=== PATIENT | male | born 1970 | race Caucasian/White ===

== ENCOUNTER 2016-12-13 14:09 | Emergency (ER) | payer MEDICAID ==
[~2016-12-13] VITALS: Ht 180.3 cm; Wt 68.0 kg
[~2016-12-13 14:09] MED LIST: CELEXA10 M1 PO; FLEXERIL10 MG PO; KEFLEX 500MG.500 MG PO; NAPROSYN 500MG500 MG PO; NORCO 325 MG-51 TAB PO; PREDNISONE 20MG20 MG PO; VIMOVO 20 MG-501 TCP PO
[2016-12-13] MEDS ORDERED: NEURONTIN 300M300 MG PO (14:20)
[2016-12-13] MEDS ORDERED: OMEPRAZOLE20 MG PO (14:20)
--- NOTE | 2016-12-13 14:23 | Emergency Room Report ---
History of Present Illness Time Seen by MD De Anda Presenting Problem in Triage Pt arrived:Wheelchair Presenting Problem:PT HAS LACERATION RIGHT RANDOLPH FROM HITTING HIS LEG ON THE HITCH OF HIS TRUCK Onset of symptoms date/time:12/13/16 or onset unknown for: Treatment Prior to Arrival: NURSE SPECIAL Provided by: Sepsis Risk Assessment: Temp: 9797. B/P: 140/83 MAP: 102 Pulse: 85 Resp: 20 Recent fever? N Clinical Suspician of Infection? N Mental Status: 1 - Regular (Normal Baseline) Sepsis Risk:Possible Sepsis Risk Have you (or family members/close friends) recently traveled outside the [place]? N If Yes, where/when: Have you had exposure to infectious disease within the past month? N TB? Other? Specify: Pretibial laceration sustained just NURSE SPECIAL when ran against a trailer hitch; has very jagged 4 cm laceration mid shaft area, with bleeding controlled, no obvious tendon or bone exposure noted; some tissue has been removed traumatically NURSE SPECIAL, leaving a divet distally to wound. ALLERGIES Coded Allergies: codeine (ITCHING 08/01/16) isopropyl alcohol (PASSING OUT 08/01/16) tramadol (ITCHING 08/01/16) Uncoded Allergies: CONTRAST DYE (12/13/16) Home Medications Reported Medications Gabapentin (Neurontin 300MG) 300 MG PO TID Omeprazole (Omeprazole 20MG) 20 MG PO DAILY Cyclobenzaprine Hcl (Flexeril) 10 MG PO TID NAPROXEN (NAPROSYN 500MG TAB) (Unknown Dose) PO DAILY Citalopram Hydrobromide (Celexa) 10 MG PO DAILY History Medical History General CAD? No Angina: No [place]: No Hypertension? No Hyperlipidemia? No CHF? No DVT? No PE? No COPD? No Asthma? No Anemia? No GERD? Yes Gastric ulcers? No GI Bleed? No Hernia? No Thyroid Problems? No Hypothyroidism? No CVA? No Seizures? No Diabetes? No Renal Insuffiency? No End Stage Renal Disease? No UTI? No Stones? No BPH? No GB Disease: No Nephritic Syndrome? No Asplenia? No Hepatitis? No Sickle Cell Disease? No Arthritis? No Migraines? Yes Cataracts? No Glaucoma? No MRSA? No HIV? No TB? No Anxiety? No Depression? No Cancer? No More? No Immunization Hx DT/Tetanus 01/10/2009 Surgical Hx Previous Surgery?N Social History Smoking Hx Smoker: Current Every Day Smoker Tobacco: Yes Type Cigarettes Packs/day 1 1/2 - 2 Packs Alcohol Alcohol: No Review of Systems All Other Systems Reviewed and Negative Skin see HPI Psychiatric/Neurological denies no symptoms reported Physical Exam Vital Signs Vital Signs Date Time Temp Pulse Resp B/P Pulse O2 O2 Flow FiO2 Ox Delivery Rate 12/13 1429 20 12/13 1412 9797.0 85 20 140/83 100 General Appearance normal appearance, WD/WN, no apparent distress Respiratory Status No: respiratory distress. Cardiovascular no peripheral edema, normal peripheral pulses Extremities non-tender (n/v intact well perfused limb), normal range of motion Strength 5 Upper Ext (L), 5 Upper Ext (R), 5 Lower Ext (L), 5 Lower Ext (R) Neurologic alert, normal exam, no motor/sensory deficits, oriented x 3 Skin laceration(s), jagged laceration 4.0 cm no FB no tendon or bone exposure some tissue gone distally. Bleeding controlled; no FB noted. Medical Decision Making LABS/Meds/Orders Pt receiving controlled substance in ED? No Results/Orders Current Medication Orders Sig/Robb Start time Last Medication Dose Route Stop Time Status Admin Bacitracin 0 .STK-MED ONE 12/13 1454 DC TP Diphtheria/Pertussis/ 0.5 ML ONCE ONE 12/13 1430 DC 12/13 Tetanus Vacc IM 12/13 1431 1428 Ketorolac 60 MG ONCE ONE 12/13 1430 DC 12/13 Tromethamine IM 12/13 1431 1429 Lidocaine/Epinephrine 10 ML ONCE ONE 12/13 1430 DC 12/13 SC 12/13 1431 1429 Diphtheria/Pertussis/ 0 .STK-MED ONE 12/13 1424 DC Tetanus Vacc IM Ketorolac 0 .STK-MED ONE 12/13 1423 DC Tromethamine .ROUTE Lidocaine/Epinephrine 0 .STK-MED ONE 12/13 1423 DC .ROUTE Orders Procedure Date/time Status LOWER LEG-RT 12/13 141 Active Procedures Laceration/Wound Repair Laceration/Wound Repair Risks/benefits discussed with pt/guardian? Yes Tetanus status up to date (updated today) Wound Location lower leg Wound Length (cm) 4 Wound's Depth, Shape sucutaneous tissue Wound Explored clean Irrigated w/ Saline (ccs) 50 Wound Prep mild soap: states allergic to isopropyl alcohol Anesthesia Lidocaine w/Epi Volume Anesthetic (ccs) 6 Wound Debrided minimal Wound Repaired With sutures Suture Size/Type 4:0 Layer Closure No Total Number Sutures 7 Sterile Dressing Applied Yes Departure Departure Time of Disposition 1456 Disposition DC Home or Self Care(routine) Clinical Impression Primary Impression: Laceration of lower leg without complication Qualifiers: Encounter type: initial encounter Laterality: right Qualified Code: S81.811A - Laceration without foreign body, right lower leg, initial encounter Condition STABLE Referrals Zhang Colvin MD (PCP) Patient Instructions Laceration Repair Additional Instructions Sutures out Dr. Colvin' office in one week; you will have scarring as some tissue was gone prior to suture repair. Discharge Counseling Counseled pt/family regarding diagnosis, medications/RX, home care, follow up needs (likelihood of scar) ED Critical Care Critical Care No at [id number]
--- NOTE | 2016-12-13 14:23 | Emergency Room Report ---
History of Present Illness Time Seen by MD De Anda Presenting Problem in Triage Pt arrived:Wheelchair Presenting Problem:PT HAS LACERATION RIGHT RANDOLPH FROM HITTING HIS LEG ON THE HITCH OF HIS TRUCK Onset of symptoms date/time:12/13/16 or onset unknown for: Treatment Prior to Arrival: DIRT SHOVELER Provided by: Sepsis Risk Assessment: Temp: 9797. B/P: 140/83 MAP: 102 Pulse: 85 Resp: 20 Recent fever? N Clinical Suspician of Infection? N Mental Status: 1 - Regular (Normal Baseline) Sepsis Risk:Possible Sepsis Risk Have you (or family members/close friends) recently traveled outside the [place]? N If Yes, where/when: Have you had exposure to infectious disease within the past month? N TB? Other? Specify: Pretibial laceration sustained just DIRT SHOVELER when ran against a trailer hitch; has very jagged 4 cm laceration mid shaft area, with bleeding controlled, no obvious tendon or bone exposure noted; some tissue has been removed traumatically DIRT SHOVELER, leaving a divet distally to wound. ALLERGIES Coded Allergies: codeine (ITCHING 08/01/16) isopropyl alcohol (PASSING OUT 08/01/16) tramadol (ITCHING 08/01/16) Uncoded Allergies: CONTRAST DYE (12/13/16) Home Medications Reported Medications Gabapentin (Neurontin 300MG) 300 MG PO TID Omeprazole (Omeprazole 20MG) 20 MG PO DAILY Cyclobenzaprine Hcl (Flexeril) 10 MG PO TID NAPROXEN (NAPROSYN 500MG TAB) (Unknown Dose) PO DAILY Citalopram Hydrobromide (Celexa) 10 MG PO DAILY History Medical History General CAD? No Angina: No [place]: No Hypertension? No Hyperlipidemia? No CHF? No DVT? No PE? No COPD? No Asthma? No Anemia? No GERD? Yes Gastric ulcers? No GI Bleed? No Hernia? No Thyroid Problems? No Hypothyroidism? No CVA? No Seizures? No Diabetes? No Renal Insuffiency? No End Stage Renal Disease? No UTI? No Stones? No BPH? No GB Disease: No Nephritic Syndrome? No Asplenia? No Hepatitis? No Sickle Cell Disease? No Arthritis? No Migraines? Yes Cataracts? No Glaucoma? No MRSA? No HIV? No TB? No Anxiety? No Depression? No Cancer? No More? No Immunization Hx DT/Tetanus 01/10/2009 Surgical Hx Previous Surgery?N Social History Smoking Hx Smoker: Current Every Day Smoker Tobacco: Yes Type Cigarettes Packs/day 1 1/2 - 2 Packs Alcohol Alcohol: No Review of Systems All Other Systems Reviewed and Negative Skin see HPI Psychiatric/Neurological denies no symptoms reported Physical Exam Vital Signs Vital Signs Date Time Temp Pulse Resp B/P Pulse O2 O2 Flow FiO2 Ox Delivery Rate 12/13 1429 20 12/13 1412 9797.0 85 20 140/83 100 General Appearance normal appearance, WD/WN, no apparent distress Respiratory Status No: respiratory distress. Cardiovascular no peripheral edema, normal peripheral pulses Extremities non-tender (n/v intact well perfused limb), normal range of motion Strength 5 Upper Ext (L), 5 Upper Ext (R), 5 Lower Ext (L), 5 Lower Ext (R) Neurologic alert, normal exam, no motor/sensory deficits, oriented x 3 Skin laceration(s), jagged laceration 4.0 cm no FB no tendon or bone exposure some tissue gone distally. Bleeding controlled; no FB noted. Medical Decision Making LABS/Meds/Orders Pt receiving controlled substance in ED? No Results/Orders Current Medication Orders Sig/Robb Start time Last Medication Dose Route Stop Time Status Admin Bacitracin 0 .STK-MED ONE 12/13 1454 DC TP Diphtheria/Pertussis/ 0.5 ML ONCE ONE 12/13 1430 DC 12/13 Tetanus Vacc IM 12/13 1431 1428 Ketorolac 60 MG ONCE ONE 12/13 1430 DC 12/13 Tromethamine IM 12/13 1431 1429 Lidocaine/Epinephrine 10 ML ONCE ONE 12/13 1430 DC 12/13 SC 12/13 1431 1429 Diphtheria/Pertussis/ 0 .STK-MED ONE 12/13 1424 DC Tetanus Vacc IM Ketorolac 0 .STK-MED ONE 12/13 1423 DC Tromethamine .ROUTE Lidocaine/Epinephrine 0 .STK-MED ONE 12/13 1423 DC .ROUTE Orders Procedure Date/time Status LOWER LEG-RT 12/13 141 Active Procedures Laceration/Wound Repair Laceration/Wound Repair Risks/benefits discussed with pt/guardian? Yes Tetanus status up to date (updated today) Wound Location lower leg Wound Length (cm) 4 Wound's Depth, Shape sucutaneous tissue Wound Explored clean Irrigated w/ Saline (ccs) 50 Wound Prep mild soap: states allergic to isopropyl alcohol Anesthesia Lidocaine w/Epi Volume Anesthetic (ccs) 6 Wound Debrided minimal Wound Repaired With sutures Suture Size/Type 4:0 Layer Closure No Total Number Sutures 7 Sterile Dressing Applied Yes Departure Departure Time of Disposition 1456 Disposition DC Home or Self Care(routine) Clinical Impression Primary Impression: Laceration of lower leg without complication Qualifiers: Encounter type: initial encounter Laterality: right Qualified Code: S81.811A - Laceration without foreign body, right lower leg, initial encounter Condition STABLE Referrals Zhang Colvin MD (PCP) Patient Instructions Laceration Repair Additional Instructions Sutures out Dr. Colvin' office in one week; you will have scarring as some tissue was gone prior to suture repair. Discharge Counseling Counseled pt/family regarding diagnosis, medications/RX, home care, follow up needs (likelihood of scar) ED Critical Care Critical Care No at [id number]
[2016-12-13 15:00] VITALS: BP 140/83
--- OUTSIDE RECORDS SUMMARY | 2016-12-13 15:02 | External Medical Summary Rpt | CCD ---
Author Author , TROY SIMMONS Address Unknown Phone [email or web address] Care Team Providers Care Stone Driller Helper Name Role Phone Rossi BARRON MD PSC, Rossi Unavailable Unavailable Lissette BARRON MD [facility] Unavailable Unavailable MEDICAL GROUP, [facility] EDWARDS, EDWARDS Unavailable Unavailable [facility] ALL, EDWARDS ALL Unavailable Unavailable [facility] Unavailable Unavailable ORTHOPAEDIC, [facility] DANILO, DANILO Unavailable Unavailable MASTERSON VANI, MASTERSON Unavailable Unavailable VANI [facility] Unavailable Unavailable INC, [facility] CORNEJO, CORNEJO Unavailable Unavailable [facility] Un[facility] Unavailable [facility], [facility] KILPELA, KILPELA Unavailable Unavailable KRISHNA BRYAN, KRISHNA BRYAN Unavailable Unavailable CRAIG III CHR, Unavailable Unavailable CRAIG III CHR BEATRICE BARRON Unavailable Unavailable Purpose Continuity of Care Document - 08-05-2015 through 2016 Problems Code Diagnosis DOS Provider Status [id number] RADICULOPAT 10-05-2016 [facility] LUMBOSACRAL ORTHOPAEDIC REGION [id number] PAIN IN 10-05-2016 [facility] LEFT LEG [place] [facility] R202 PARESTHESIA 10-05-2016 [facility] SKIN [place] [facility] M5136 OTH 09-22-2016 [facility] INTERVERTEB [place] RAL DISC ORTHOPAEDIC DEGEN LUMBAR REGION [id number] OTHER 08-18-2016 [facility] SPONDYLOSIS [facility] LUMBAR [facility] REGION M5412 RADICULOPAT 08-01-2016 [facility] HY CERVICAL [facility] INC M5416 RADICULOPAT 08-01-2016 ANT LUMBAR [facility] REGION INC M5127 OTH 07-24-2016 [place] INTERVERT MEDICAL RAL DISC IMAGING ASS DISPLACEMEN T LS REGION M545 LOW BACK 07-24-2016 [place] PAIN MEDICAL IMAGING ASS M33766 OTHER 07-13-2016 [facility] CERVICAL [place] DISC ORTHOPAEDIC DEGENERATIO N AT C4-C5 LEVEL [id number] OTHER 07-13-2016 [facility] CERVICAL [place] DISC ORTHOPAEDIC DEGENERATIO N AT C5-C6 LEVEL M542 CERVICALGIA 07-13-2016 Rossi BARRON MD [facility] [id number] PAIN IN 07-07-2016 [facility] RIGHT UPPER [place] ARM [facility]THOPAEDIC Y21211 PAIN IN 07-07-2016 [facility] LEFT UPPER [place] [facility]TH[facility] [id number] SPONDYLOSIS 06-19-2016 [place] W/O MEDICAL MYELOPATH/R IMAGING ASS ADICULOPATH Y CERV RGN J40 BRONCHITIS 06-08-2016 A Lissette STEELE MD PSC SPECIFIED ACUTE OR CHRONIC R200 ANESTHESIA 05-29-2016 A Lissette BARRON OF SKIN PSC [id number] STRAIN 05-29-2016 A Lissette BARRON MUSCLE PSC FASCIA & TENDON LOW BACK INITIAL Z6820 BODY MASS 05-29-2016 A Lissette BARRON INDEX BMI PSC 20.0-20.9 ADULT H9201 OTALGIA 02-29-2016 A Lissette BARRON RIGHT EAR [facility] M58347 UNSPECIFIED 02-29-2016 A Lissette BARRON MD PSC TEMPOROMAND IBULAR JOINT D/O UNS SIDE M5022 OT CERV 11-11-2015 [facility] MEDICAL T GROUP MID-CERVICA L REGION M5489 OTHER 11-11-2015 [facility] M5030 OT 10-21-2015 [facility] CERVICAL [facility] DISC INC DEGENERATIO N UNS CERV REGION M5032 OT CERV 10-11-2015 [place] DISC MEDICAL DEGENERATIO IMAGING ASS N MID-CERVICA L REGION M5137 OT 10-11-2015 [place] INTERVERTEB MEDICAL RAL DISC IMAGING ASS DEGEN LUMBOSACRAL REGION M5442 LUMBAGO 10-11-2015 [facility] WITH [facility] SCIATICA INC LEFT SIDE Medications Na ND Rx Da Fi Fi Am Da Di Ph RX Ph St me C No te ll ll ou ys ag ar # ys at rm s nt no ma ic us Or Da si cy ia de te s n re d CI 65 09 10 30 30 00 HO Ac TA 16 -2 -1 .0 00 ME ti LO 20 0- 3- 00 06 TO ve VA 05 20 20 09 WN AM 35 17 17 10 0 23 PH HB AR R MA 20 CY MG OF TA CY BL NT ET HI AN A BE 69 09 10 30 10 00 HO Ac NZ 45 -0 -0 .0 00 ME ti ON 20 7- 6- 00 06 TO ve AT 14 20 20 09 WN AT 43 17 17 38 E 0 96 PH 20 AR 0 MA MG CY CA OF PS UL CY E NT HI AN A VA 00 08 09 20 10 00 HO Ac OM 60 -3 -2 0. 00 ME ti ET 31 1- 9- 00 06 TO ve MCDANIELS 58 20 20 0 09 WN ZI 65 17 17 34 NE 8 92 PH -D AR M MA SY CY RU P OF CY NT HI AN A VA 59 08 09 30 30 00 HO Ac ED 74 -3 -2 .0 00 ME ti NI 60 0- 2- 00 06 TO ve SO 17 20 20 09 WN NE 50 17 17 33 9 95 PH 20 AR MA MG CY TA OF BL ET CY NT HI AN A HY 68 08 09 [address] 46 -3 -2 .0 00 ME ti OX 20 0- 2- 00 06 TO ve YZ 35 20 20 09 WN IN 30 17 17 33 E 5 96 PH HC AR L MA 25 CY MG OF TA CY BL NT ET HI AN A GA 45 08 09 90 30 00 HO Ac BA 96 -3 -2 .0 00 ME ti PE 30 0- 2- 00 04 TO ve NT 55 20 20 02 WN IN 55 17 17 43 0 69 PH 10 AR 0 MA MG CY CA OF PS UL CY E NT HI AN A CI 65 08 09 30 30 00 HO Ac TA 16 -2 -1 .0 00 ME ti LO 20 1- 5- 00 06 TO ve VA 05 20 20 09 WN AM 35 17 17 10 0 23 PH HB AR R MA 20 CY MG OF TA CY BL NT ET HI AN A CY 69 08 09 90 30 00 HO Ac CL 09 -2 -1 .0 00 ME ti OB 70 1- 5- 00 06 TO ve EN 84 20 20 09 WN ZA 61 17 17 28 VA 5 05 PH IN AR E MA 10 CY MG OF TA CY BL NT ET HI AN A VA 59 07 08 20 10 00 HO Ac ED 74 -1 -1 .0 00 ME ti NI 60 9- 1- 00 06 TO ve SO 17 20 20 09 WN NE 50 17 17 10 9 20 PH 20 AR MA MG CY TA OF BL ET CY NT HI AN A CY 69 07 08 90 30 00 HO Ac CL 09 -1 -1 .0 00 ME ti OB 70 9- 1- 00 06 TO ve EN 84 20 20 09 WN ZA 61 17 17 10 VA 5 22 PH IN AR E MA 10 CY MG OF TA CY BL NT ET HI AN A CI 65 07 08 30 30 00 HO Ac TA 16 -1 -1 .0 00 ME ti LO 20 9- 1- 00 06 TO ve VA 05 20 20 09 WN AM 35 17 17 10 0 23 PH HB AR R MA 20 CY MG OF TA CY BL NT ET HI AN A FL 50 06 07 16 30 00 HO Ac UT 38 -2 -2 .0 00 ME ti IC 30 9- 8- 00 06 TO ve 70 20 20 08 WN ON 01 17 17 47 E 6 20 PH VA AR OP MA CY 50 OF MC G CY SP NT RA HI Y AN A CY 69 06 07 30 10 00 HO Ac CL 09 -2 -2 .0 00 ME ti OB 70 9- 8- 00 06 TO ve EN 84 20 20 08 WN ZA 61 17 17 89 VA 5 01 PH IN AR E MA 10 CY MG OF TA CY BL NT ET HI AN A NA 69 06 07 60 30 00 HO Ac VA 09 -1 -1 .0 00 ME ti OX 70 5- 4- 00 06 TO ve EN 85 20 20 08 WN 51 17 17 90 50 2 60 PH 0 AR MG MA CY TA BL OF ET CY NT HI AN A CY 69 06 07 30 10 00 HO Ac CL 09 -1 -0 .0 00 ME ti OB 70 4- 7- 00 06 TO ve EN 84 20 20 08 WN ZA 61 17 17 89 VA 5 01 PH IN AR E MA 10 CY MG OF TA CY BL NT ET HI AN A HY 00 05 06 [address] 60 -1 -0 .0 00 ME ti OC 33 2- 9- 00 02 TO ve OD 89 20 20 01 WN ON 03 17 17 36 -A 2 45 PH CE AR TA MA CO CY NO PH OF EN CY 5- NT 32 HI 5 AN A CY 69 05 06 30 10 00 HO Ac CL 09 -1 -0 .0 00 ME ti OB 70 1- 9- 00 06 TO ve EN 84 20 20 08 WN ZA 61 17 17 47 VA 5 19 PH IN AR E MA 10 CY MG OF TA CY BL NT ET HI AN A CY 69 04 05 30 10 00 HO Ac CL 09 -2 -2 .0 00 ME ti OB 70 8- 6- 00 06 TO ve EN 84 20 20 08 WN ZA 61 17 17 47 VA 5 19 PH IN AR E MA 10 CY MG OF TA CY BL NT ET HI AN A HY 00 04 05 [address] 60 -2 -2 .0 00 ME ti OC 33 8- 6- 00 02 TO ve OD 89 20 20 01 WN ON 03 17 17 35 -A 2 28 PH CE AR TA MA CO CY NO PH OF EN CY 5- NT 32 HI 5 AN A AM 00 04 05 20 10 00 HO Ac OX 09 -2 -1 .0 00 ME ti IC 32 0- 9- 00 06 TO ve IL 26 20 20 08 WN LI 40 17 17 54 N 1 82 PH 87 AR 5 MA MG CY TA OF BL ET CY NT HI AN A VA 59 04 05 20 10 00 HO Ac ED 74 -2 -1 .0 00 ME ti NI 60 0- 9- 00 06 TO ve SO 17 20 20 08 WN NE 50 17 17 54 9 80 PH 20 AR MA MG CY TA OF BL ET CY NT HI AN A VA 00 04 05 14 7 00 HO Ac OM 60 -2 -1 0. 00 ME ti ET 31 0- 9- 00 06 TO ve MCDANIELS 58 20 20 0 08 WN ZI 65 17 17 54 NE 8 81 PH -D AR M MA SY CY RU P OF CY NT HI AN A HY 00 04 05 [address] 60 -1 -0 .0 00 ME ti OC 33 0- 5- 00 02 TO ve OD 89 20 20 01 WN ON 03 17 17 33 -A 2 55 PH CE AR TA MA CO CY NO PH OF EN CY 5- NT 32 HI 5 AN A CY 00 04 05 30 10 00 HO Ac CL 60 -1 -0 .0 00 ME ti OB 33 0- 5- 00 06 TO ve EN 07 20 20 08 WN ZA 93 17 17 47 VA 2 19 PH IN AR E MA 10 CY MG OF TA CY BL NT ET HI AN A FL 50 04 05 16 30 00 HO Ac UT 38 -1 -0 .0 00 ME ti IC 30 0- 5- 00 06 TO ve 70 20 20 08 WN ON 01 17 17 47 E 6 20 PH VA AR OP MA CY 50 OF MC G CY SP NT RA HI Y AN A CY 00 03 04 30 10 00 HO Ac CL 60 -3 -2 .0 00 ME ti OB 33 0- 8- 00 06 TO ve EN 07 20 20 08 WN ZA 93 17 17 32 VA 2 80 PH IN AR E MA 10 CY MG OF TA CY BL NT ET HI AN A VA 59 03 04 20 10 00 HO Ac ED 74 -2 -2 .0 00 ME ti NI 60 7- 1- 00 06 TO ve SO 17 20 20 08 WN NE 50 17 17 40 9 06 PH 20 AR MA MG CY TA OF BL ET CY NT HI AN A NA 68 03 04 60 30 00 HO Ac VA 46 -1 -1 .0 00 ME ti OX 20 6- 4- 00 06 TO ve EN 19 20 20 08 WN 00 17 17 33 50 5 57 PH 0 AR MG MA CY TA BL OF ET CY NT HI AN A 75 03 04 60 30 00 HO Ac MO 98 -2 -1 .0 00 ME ti VO 70 2- 4- 00 06 TO ve 03 [address] 00 17 17 33 4 21 PH 50 AR 0- MA 20 CY MG OF TA CY BL NT ET HI AN A OM 68 03 04 30 30 00 HO Ac EP 46 -1 -1 .0 00 ME ti RA 20 6- 4- 00 06 TO ve ZO 39 20 20 08 WN LE 61 17 [address] AR MA 20 CY MG OF CA CY PS NT UL HI E AN A CY 00 03 04 30 10 00 HO Ac CL 60 -1 -0 .0 00 ME ti OB 33 5- 7- 00 06 TO ve EN 07 20 20 08 WN ZA 93 17 17 32 VA 2 80 PH IN AR E MA 10 CY MG OF TA CY BL NT ET HI AN A CY 00 02 03 30 10 00 HO Ac CL 60 -2 -2 .0 00 ME ti OB 33 7- 4- 00 06 TO ve EN 07 20 20 07 WN ZA 93 17 17 98 VA 2 23 PH IN AR E MA 10 CY MG OF TA CY BL NT ET HI AN A CY 00 02 03 30 10 00 HO Ac CL 60 -1 -1 .0 00 ME ti OB 33 3- 0- 00 06 TO ve EN 07 20 20 07 WN ZA 93 17 17 98 VA 2 23 PH IN AR E MA 10 CY MG OF TA CY BL NT ET HI AN A CY 00 01 02 30 10 00 HO Ac CL 60 -1 -1 .0 00 ME ti OB 33 9- 7- 00 06 TO ve EN 07 20 20 07 WN ZA 93 17 17 98 VA 2 23 PH IN AR E MA 10 CY MG OF TA CY BL NT ET HI AN A ME 68 01 02 30 30 00 HO Ac LO 38 -1 -1 .0 00 ME ti XI 20 8- 0- 00 06 TO ve CA 05 20 20 07 WN M 10 17 17 97 15 5 24 PH AR MG MA CY TA BL OF ET CY NT HI AN A HY 53 12 01 8. [address] 74 -2 -2 00 00 S ti OC 60 9- 7- 0 01 PH ve OD 10 20 20 28 AR ON 90 16 17 09 MA -A 1 39 CY CE TA #0 CO 23 NO 32 PH EN 5- 32 5 IB 53 12 01 30 10 00 CV Ac UP 74 -2 -2 .0 00 S ti RO 60 9- 7- 00 01 PH ve FE 46 20 20 28 AR N 60 16 17 09 MA 80 5 40 CY 0 MG #0 23 TA 32 BL ET FL 50 12 01 16 30 00 HO Ac UT 38 -2 -1 .0 00 ME ti IC 30 0- 3- 00 06 TO ve 70 20 20 07 WN ON 01 16 17 38 E 6 68 PH VA AR OP MA CY 50 OF MC G CY SP NT RA HI Y AN A Procedures Procedure DOS Code Location Performer Comment NERVE 85240 [facility] CONDU[facility] 7 [place] N STUDIES ORTHOPAED 9-10 IC STUDIES NEEDLE 13083 [facility] EMG EA 7 [place] EXTREMTY ORTHOPAED W/PARASPI IC NL AREA COMPLETE NJX 10913 AN[facility]IN DX/THER 7 [facility] AGT PVRT INC INC FACET JT LMBR/SAC 1 LEVEL NJX 82942 ANT CAIN DX/THER 7 [facility] AGT PVRT INC INC FACET JT LMBR/SAC 2ND LEVEL MRI 25238 [facility] SPINAL 7 MEDICAL CANAL IMAGING LUMBAR ASS W/O CONTRAST MATERIAL 3D 68623 [facility] W/INTERP IMAGING & ASS POSTPROCE SS SUPERVISI ON NEEDLE 49445 [facility] EMG EA 7 [place] EXTREMTY ORTHOPAED W/PARASPI IC NL AREA COMPLETE NERVE 11761 [facility] [place] CONDUCTIO 7 [place] N STUDIES ORTHOPAED 9-10 IC STUDIES RADEX 70027 [place] [facility] SPINE 7 MEDICAL CERVICAL IMAGING 4 OR 5 ASS VIEWS RADEX 49706 [place] [facility] SPINE 7 MEDICAL LUMBOSACR IMAGING AL 2/3 ASS VIEWS RADEX 96585 [facility] SPINE 7 [facility] LUMBOSACR INC INC AL MINIMUM 4 VIEWS APPL 18052 [facility] MODALITY 7 [facility] 1/> AREAS INC INC TRACTION MECHANICA L APPL 65427 ANT CAIN MODALITY 7 [facility] 1/> AREAS INC INC ELEC STIMJ UNATTENDE D APPLICATI 21559 [facility] CAIN ON 7 [facility] MODALITY INC INC 1/> AREAS HOT/COLD PACKS APPLICATI 89094 ANT CAIN ON 7 [facility] MODALITY INC INC 1/> AREAS HOT/COLD PACKS APPL 16786 [facility] MODALITY 7 [facility] 1/> AREAS INC INC ELEC STIMJ UNATTENDE D APPL 13832 [facility] CA[facility] MODALITY 7 [facility] 1/> AREAS INC INC TRACTION MECHANICA L THERAPEUT 73068 ANT CAIN IC PX 1/> 7 [facility] AREAS INC INC EACH 15 MIN EXERCISES APPL 01294 AN[facility] CAIN MODALITY 7 [facility] 1/> AREAS INC INC TRACTION MECHANICA L APPL 42118 ANT CAIN MODALITY 7 [facility] 1/> AREAS INC INC ELEC STIMJ UNATTENDE D APPLICATI 61873 ANT CAIN ON 7 [facility] MODALITY INC INC 1/> AREAS HOT/COLD PACKS APPLICATI 76257 ANT CAIN ON 7 [facility] MODALITY INC INC 1/> AREAS HOT/COLD PACKS APPL 87762 ANT CAIN MODALITY 7 [facility] 1/> AREAS INC INC ELEC STIMJ UNATTENDE D APPL 80591 ANT CAIN MODALITY 7 [facility] 1/> AREAS INC INC TRACTION MECHANICA L PHYSICAL 64159 AN[facility] THERAPY 7 [facility] EVALUATIO INC INC N MOD COMPLEX 30 MINS INJECTION J1885 Rossi BARRON MD KETOROLAC PSC TROMETHAM INE PER 15 MG INJECTION J3301 Rossi BARRON MD TRIAMCINO PSC LONE ACETONIDE NOS 10 MG THERAPEUT 71667 Rossi [place] IC 7 BEATRICE SALDIVAR PROPHYLAC PSC TIC/DX INJECTION SUBQ/IM APPL 01014 ANT CAIN MODALITY 6 [facility] 1/> AREAS INC INC TRACTION MECHANICA L APPLICATI 61017 ANT CAIN ON 6 [facility] MODALITY INC INC 1/> AREAS HOT/COLD PACKS APPL 93089 ANT CAIN MODALITY 6 [facility] 1/> AREAS INC INC ELEC STIMJ UNATTENDE D APPL 63031 ANT CAIN MODALITY 6 [facility] 1/> AREAS INC INC ULTRASOUN D EA 15 MIN APPL 61133 ANT CAIN MODALITY 6 [facility] 1/> AREAS INC INC ULTRASOUN D EA 15 MIN APPL 58920 ANT CAIN MODALITY 6 [facility] 1/> AREAS INC INC ELEC STIMJ UNATTENDE D APPL 10472 ANT CAIN MODALITY 6 [facility] 1/> AREAS INC INC TRACTION MECHANICA L THERAPEUT 12972 ANT CAIN IC PX 1/> 6 [facility] AREAS INC INC EACH 15 MIN EXERCISES APPL 89231 ANT CAIN MODALITY 6 [facility] 1/> AREAS INC INC TRACTION MECHANICA L APPL 83155 ANT CAIN MODALITY 6 [facility] 1/> AREAS INC INC ELEC STIMJ UNATTENDE D APPLICATI 19971 ANT CAIN ON 6 [facility] MODALITY INC INC 1/> AREAS HOT/COLD PACKS APPL 31746 ANT CAIN MODALITY 6 [facility] 1/> AREAS INC INC ULTRASOUN D EA 15 MIN APPL 89862 ANT CAIN MODALITY 6 [facility] 1/> AREAS INC INC ULTRASOUN D EA 15 MIN APPLICATI 52450 ANT CAIN ON 6 [facility] MODALITY INC INC 1/> AREAS HOT/COLD PACKS APPL 42306 ANT CAIN MODALITY 6 [facility] 1/> AREAS INC INC ELEC STIMJ UNATTENDE D APPL 33046 ANT CAIN MODALITY 6 [facility] 1/> AREAS INC INC TRACTION MECHANICA L APPL 77991 ANT CAIN MODALITY 6 [facility] 1/> AREAS INC INC TRACTION MECHANICA L THERAPEUT 75723 ANT CAIN IC PX 1/> 6 [facility] AREAS INC INC EACH 15 MIN EXERCISES APPL 08327 ANT CAIN MODALITY 6 [facility] 1/> AREAS INC INC ELEC STIMJ UNATTENDE D APPL 25626 ANT CAIN MODALITY 6 [facility] 1/> AREAS INC INC ULTRASOUN D EA 15 MIN APPL 89032 ANT CAIN MODALITY 6 [facility] 1/> AREAS INC INC ULTRASOUN D EA 15 MIN APPL 28379 ANT CAIN MODALITY 6 [facility] 1/> AREAS INC INC ELEC STIMJ UNATTENDE D THERAPEUT 73114 ANT CAIN IC PX 1/> 6 [facility] AREAS INC INC EACH 15 MIN EXERCISES APPL 74536 ANT CAIN MODALITY 6 [facility] 1/> AREAS INC INC TRACTION MECHANICA L 3D 71293 [place] [facility] ALL RENDERING 6 MEDICAL W/INTERP IMAGING & ASS POSTPROCE SS SUPERVISI ON MRI 16265 [facility] ALL SPINAL 6 MEDICAL CANAL IMAGING CERVICAL ASS W/O CONTRAST MATRL RADEX 18708 [facility] SPINE 6 [facility] CERVICAL INC INC 4 OR 5 VIEWS THERAPEUT 53852 Rossi MASTERSON IC Wally LUDWIG PROPHYLAC PSC TIC/DX INJECTION SUBQ/IM RADEX 63187 [facility]IN SPINE 6 [facility] LUMBOSACR INC INC AL MINIMUM 4 VIEWS RADEX 66355 [facility] SPINE 6 MEDICAL LUMBOSACR IMAGING AL 2/3 ASS VIEWS INJECTION J1885 Rossi LUDWIG KETOROLAC PSC TROMETHAM INE PER 15 MG RADEX 63240 [place] [facility] ALL SPINE 6 MEDICAL CERVICAL IMAGING 2 OR 3 ASS VIEWS Encounters Encounter Start End Date Code Location Performer Type Date OFFICE 25290 [facility] 7 7 [place] T VISIT [facility]THOPAED 15 IC MINUTES OFFICE 17756 [facility] 7 7 [place] [facility]OP[facility]ED 10 IC MINUTES OFFICE 09951 [facility] 7 [place] [facility] 15 IC MINUTES [facility]OSPITAL ANT - 7 7 [facility] T OFFICE 16020 [facility] 7 7 [place] T VIS[place]THOPAED 15 IC MINUTES OFFICE 73647 [facility]T OUTPATIEN 7 7 [facility] T VISIT INC 10 MINUTES HOSPITAL ANT - 7 7 [facility] OUTPATIEN INC T OFFICE 80600 A [facility] OUTPATIEN 7 7 BEATRICE SALDIVAR T VISIT PSC 15 MINUTES OFFICE 84566 [facility] 7 7 [place] VIS[place]THOPAED 10 IC MINUTES OFFICE 13045 A C [place] OUTPATIEN 7 7 BEATRICE SALDIVAR T VISIT PSC 15 MINUTES OFFICE 14598 [facility] 7 7 [place] T NEW 30 [facility]THOPAED MINUTES HOSPITAL ANT - 7 7 [facility] OUTPATIEN INC T OFFICE 02415 A C K[place]PE[place] OUTPATIEN 7 7 BEATRICE SALDIVAR T VISIT PSC 15 MINUTES OFFICE 48809 A [facility] OUTPATIEN 7 7 BEATRICE SALDIVAR T VISIT PSC 15 MINUTES OFFICE 32779 [facility] [place] OUTPATIEN 7 7 BEATRICE SALDIVAR T VISIT PSC 15 MINUTES HOSPITAL ANT - 7 7 [facility] OUTPATIEN INC T OFFICE 56554 A C [place] OUTPATIEN 7 7 BEATRICE SALDIVAR T VISIT PSC 15 MINUTES OFFICE 52562 Rossi BARRON OUTPATIPREETHI 7 7 BEATRICE SALDIVAR T VISIT [facility] 15 MINUTES [facility] ANT - 6 6 [facility] INC T OFFICE 95865 [facility] CRA[facility] OUTPATIEN 6 6 [facility] NEW 45 MEDICAL MINUTES [facility] ANT - 6 6 [facility] OUTPATIEN INC T OFFICE 22487 Rossi MASTERSON OUTPATIEN 6 6 BEATRICE LUDWIG T VISIT [facility] 15 MINUTES [facility] ANT - 6 6 [facility] OUTPATIEN INC T OFFICE 88453 Rossi ADAMS OUTPATIEN 6 6 BEATRICE SALDIVAR T VISIT [facility] 15 MINUTES
--- OUTSIDE RECORDS SUMMARY | 2016-12-13 15:02 | External Medical Summary Rpt | CCD ---
Author Author , TROY SIMMONS Address Unknown Phone [email or web address] Care Team Providers Care Battery Assembler Name Role Phone Rossi BARRON MD PSC, Rossi Unavailable Unavailable Lissette BARRON MD [facility] Unavailable Unavailable [facility], [facility] EDWARDS, EDWARDS Unavailable Unavailable [facility], [facility] ALL Unavailable Unavailable [facility] Unavailable Unavailable ORTHOPAEDIC, [facility] DANILO, DANILO Unavailable Unavailable MASTERSON VANI, MASTERSON Unavailable Unavailable V[facility] Unavailable Unavailable INC, [facility] CORNEJO, CORNEJO Unavailable Unavailable [facility] KILPELA, KILPELA Unavailable Unavailable KRISHNA BRYAN, KRISHNA BRYAN Unavailable Unavailable CRAIG III CHR, Unavailable Unavailable CRAIG III CHR BEATRICE BARRON Unavailable Unavailable Purpose Continuity of Care Document - 08-05-2015 through 2016 Problems Code Diagnosis DOS Provider Status [id number] RADICULOPAT 10-05-2016 [facility] LUMBOSACRAL ORTHOPAEDIC REGION [id number] PAIN IN 10-05-2016 [place] LEFT LEG [place] [facility] R202 PARESTHESIA 10-05-2016 [facility] [place] [facility] M5136 OTH 09-22-2016 [facility] INTERVERTEB [place] RAL DISC ORTHOPAEDIC DEGEN LUMBAR REGION [id number] OTHER 08-18-2016 [facility] LUMBAR INC REGION M5412 RADICULOPAT 08-01-2016 [facility] HY CERVICAL [facility] REG[facility] INC M5416 RADICULOPAT 08-01-2016 ANT LUMBAR [facility] INC M5127 OTH 07-24-2016 [place] INTERVERT [facility]ICAL RAL DISC IMAGING ASS DISPLACEMEN T LS REGION M545 LOW BACK 07-24-2016 [place] PAIN [facility] [id number] OTHER 07-13-2016 [facility] CERVICAL [place] DISC ORTHOPAEDIC DEGENERATIO N AT C4-C5 LEVEL U77656 OTHER 07-13-2016 [facility] CERVICAL [place] DISC ORTHOPAEDIC DEGENERATIO N AT C5-C6 LEVEL M542 CERVICALGIA 07-13-2016 Rossi BARRON MD [facility] [id number] PAIN IN 07-07-2016 [facility] RIGHT UPPER [place] ARM [facility]THOPAEDIC D51897 PAIN IN 07-07-2016 [facility] LEFT UPPER [place] [facility] N08259 SPONDYLOSIS 06-19-2016 [place] W/O MEDICAL MYELOPATH/R IMAGING ASS ADICULOPATH Y CERV RGN J40 BRONCHITIS 06-08-2016 A Lissette STEELE MD PSC SPECIFIED ACUTE OR CHRONIC R200 ANESTHESIA 05-29-2016 A Lissette BARRON OF SKIN PSC [id number] STRAIN 05-29-2016 A Lissette BARRON MUSCLE P[facility] FASCIA & TENDON LOW BACK INITIAL Z6820 BODY MASS 05-29-2016 A Lissette BARRON INDEX BMI PSC 20.0-20.9 ADULT H9201 OTALGIA 02-29-2016 A Lissette BARRON RIGHT EAR [facility] [id number] UNSPECIFIED 02-29-2016 A Lissette BARRON MD P[facility] TEMPOROMAND IBULAR JOINT D/O UNS SIDE M5022 OT CERV 11-11-2015 [facility] MID-CERVICA L REGION M5489 OTHER 11-11-2015 [facility] M5030 OT 10-21-2015 [facility] CERVICAL [facility] DISC INC DEGENERATIO N UNS CERV REGION M5032 OT CERV 10-11-2015 [place] DIS[facility] DEGENERATIO IMAGING ASS N MID-CERVICA L REGION M5137 OT 10-11-2015 [place] INTERVERTEB MEDICAL RAL DISC IMAGING ASS DEGEN [...] 20 0- 3- 00 06 TO ve IL 05 20 20 09 WN AM 35 [...] UL CY E NT HI AN A IL 00 08 09 20 10 00 HO Ac OM 60 -3 -2 0. 00 ME ti ET 31 1- 9- 00 06 TO ve MCDANIELS 58 20 20 0 09 WN ZI 65 17 17 34 NE 8 92 PH -D AR M MA SY CY RU P OF CY NT HI AN A IL 59 08 09 30 30 00 HO [...] 20 1- 5- 00 06 TO ve IL 05 20 20 09 WN AM 35 [...] 09 WN ZA 61 17 17 28 IL 5 05 PH IN AR E MA 10 CY MG OF TA CY BL NT ET HI AN A IL 59 07 08 20 10 00 HO [...] 09 WN ZA 61 17 17 10 IL 5 22 PH IN AR E MA 10 CY MG OF TA CY BL NT ET HI AN A CI 65 07 08 30 30 00 HO Ac TA 16 -1 -1 .0 00 ME ti LO 20 9- 1- 00 06 TO ve IL 05 20 20 09 WN AM 35 [...] 17 17 47 E 6 20 PH IL AR OP MA CY 50 OF MC G CY SP NT RA HI Y AN A CY 69 06 07 30 10 00 HO Ac CL 09 -2 -2 .0 00 ME ti OB 70 9- 8- 00 06 TO ve EN 84 20 20 08 WN ZA 61 17 17 89 IL 5 01 PH IN AR E MA 10 CY MG OF TA CY BL NT ET HI AN A NA 69 06 07 60 30 00 HO Ac IL 09 -1 -1 .0 00 ME ti [...] 08 WN ZA 61 17 17 89 IL 5 01 PH IN AR E MA 10 CY MG OF TA CY BL NT ET HI AN A HY 00 05 06 [address] 60 -1 -0 .0 00 ME ti OC 33 2- 9- 00 02 TO ve OD 89 20 20 01 WN ON 03 17 17 36 -A 2 45 PH CE AR TA MA [place] CY NO PH OF EN CY 5- NT 32 HI 5 AN A CY 69 05 06 30 10 00 HO Ac CL 09 -1 -0 .0 00 ME ti OB 70 1- 9- 00 06 TO ve EN 84 20 20 08 WN ZA 61 17 17 47 IL 5 19 PH IN AR E MA 10 CY MG OF TA CY BL NT ET HI AN A CY 69 04 05 30 10 00 HO Ac CL 09 -2 -2 .0 00 ME ti OB 70 8- 6- 00 06 TO ve EN 84 20 20 08 WN ZA 61 17 17 47 IL 5 19 PH IN AR E MA 10 CY MG OF TA CY BL NT ET HI AN A HY 00 04 05 [address] 60 -2 -2 .0 00 ME ti OC 33 8- 6- 00 02 TO ve OD 89 20 20 01 WN ON 03 17 17 35 -A 2 28 PH CE AR TA MA [place] CY NO PH OF EN CY 5- [...] BL ET CY NT HI AN A IL 59 04 05 20 10 00 HO Ac ED 74 -2 -1 .0 00 ME ti NI 60 0- 9- 00 06 TO ve SO 17 20 20 08 WN NE 50 17 17 54 9 80 PH 20 AR MA MG CY TA OF BL ET CY NT HI AN A IL 00 04 05 14 7 00 HO [...] 2 55 PH CE AR TA MA [place] CY NO PH OF EN CY 5- NT 32 HI 5 AN A CY 00 04 05 30 10 00 HO Ac CL 60 -1 -0 .0 00 ME ti OB 33 0- 5- 00 06 TO ve EN 07 20 20 08 WN ZA 93 17 17 47 IL 2 19 PH IN AR E MA 10 CY MG OF TA CY BL NT ET HI AN A FL 50 04 05 16 30 00 HO Ac UT 38 -1 -0 .0 00 ME ti IC 30 0- 5- 00 06 TO ve 70 20 20 08 WN ON 01 17 17 47 E 6 20 PH IL AR OP MA CY 50 OF MC G CY SP NT RA HI Y AN A CY 00 03 04 30 10 00 HO Ac CL 60 -3 -2 .0 00 ME ti OB 33 0- 8- 00 06 TO ve EN 07 20 20 08 WN ZA 93 17 17 32 IL 2 80 PH IN AR E MA 10 CY MG OF TA CY BL NT ET HI AN A IL 59 03 04 20 10 00 HO Ac ED 74 -2 -2 .0 00 ME ti NI 60 7- 1- 00 06 TO ve SO 17 20 20 08 WN NE 50 17 17 40 9 06 PH 20 AR MA MG CY TA OF BL ET CY NT HI AN A NA 68 03 04 60 30 00 HO Ac IL 46 -1 -1 .0 00 ME ti [...] 08 WN ZA 93 17 17 32 IL 2 80 PH IN AR E MA 10 CY MG OF TA CY BL NT ET HI AN A CY 00 02 03 30 10 00 HO Ac CL 60 -2 -2 .0 00 ME ti OB 33 7- 4- 00 06 TO ve EN 07 20 20 07 WN ZA 93 17 17 98 IL 2 23 PH IN AR E MA 10 CY MG OF TA CY BL NT ET HI AN A CY 00 02 03 30 10 00 HO Ac CL 60 -1 -1 .0 00 ME ti OB 33 3- 0- 00 06 TO ve EN 07 20 20 07 WN ZA 93 17 17 98 IL 2 23 PH IN AR E MA 10 CY MG OF TA CY BL NT ET HI AN A CY 00 01 02 30 10 00 HO Ac CL 60 -1 -1 .0 00 ME ti OB 33 9- 7- 00 06 TO ve EN 07 20 20 07 WN ZA 93 17 17 98 IL 2 23 PH IN AR E MA [...] -A 1 39 CY CE TA #0 [place] 23 NO 32 PH EN 5- 32 [...] 16 17 38 E 6 68 PH IL AR OP MA CY 50 OF MC G CY SP NT RA HI Y AN A Procedures Procedure DOS Code Location Performer Comment NERVE 19763 [facility] CONDUCTIO 7 [place] N STUDIES ORTHOPAED 9-10 IC STUDIES NEEDLE 96626 [facility] EMG EA 7 [place] EXTREMTY ORTHOPAED W/PARASPI IC NL AREA COMPLETE NJX 58191 ANT CAIN DX/THER 7 [facility] AGT PVRT INC INC FACET JT LMBR/SAC 1 LEVEL NJX 25990 ANT CAIN DX/THER 7 [facility] AGT PVRT INC INC FACET JT LMBR/SAC 2ND LEVEL MRI 14288 [facility] SPINAL 7 MEDICAL CANAL IMAGING LUMBAR ASS W/O CONTRAST MATERIAL 3D 66703 [facility] W/INTERP IMAGING & ASS POSTPROCE SS SUPERVISI ON NEEDLE 79130 [facility] [place] EMG EA 7 [place] EXTREMTY ORTHOPAED W/PARASPI IC NL AREA COMPLETE NERVE 51746 [facility] [place] CONDUCTIO 7 [place] N STUDIES ORTHOPAED 9-10 IC STUDIES RADEX 74693 [place] [facility] SPINE 7 MEDICAL CERVICAL IMAGING 4 OR 5 ASS VIEWS RADEX 91977 [place] [facility] SPINE 7 MEDICAL LUMBOSACR IMAGING AL 2/3 ASS VIEWS RADEX 83945 ANT ACIN SPINE 7 [facility] LUMBOSACR INC INC AL MINIMUM 4 VIEWS APPL 55564 [facility] MODALITY 7 [facility] 1/> AREAS INC INC TRACTION MECHANICA L APPL 84337 ANT [facility]IN MODALITY 7 [facility] 1/> AREAS INC INC ELEC STIMJ UNATTENDE D APPLICATI 97844 ANT CAIN ON 7 [facility] MODALITY INC INC 1/> AREAS HOT/COLD PACKS APPLICATI 40097 ANT CAIN ON 7 [facility] MODALITY INC INC 1/> AREAS HOT/COLD PACKS APPL 54455 AN[facility]IN MODALITY 7 [facility] 1/> AREAS INC INC ELEC STIMJ UNATTENDE D APPL 58923 AN[facility] CA[facility] MODALITY 7 [facility] 1/> AREAS INC INC TRACTION MECHANICA L THERAPEUT 05517 ANT CAIN IC PX 1/> 7 [facility] AREAS INC INC EACH 15 MIN EXERCISES APPL 47386 ANT CA[facility] MODALITY 7 [facility] 1/> AREAS INC INC TRACTION MECHANICA L APPL 58488 ANT CAIN MODALITY 7 [facility] 1/> AREAS INC INC ELEC STIMJ UNATTENDE D APPLICATI 07294 ANT CAIN ON 7 [facility] MODALITY INC INC 1/> AREAS HOT/COLD PACKS APPLICATI 37341 ANT CAIN ON 7 [facility] MODALITY INC INC 1/> AREAS HOT/COLD PACKS APPL 45577 ANT CAIN MODALITY 7 [facility] 1/> AREAS INC INC ELEC STIMJ UNATTENDE D APPL 20571 ANT CAIN MODALITY 7 [facility] 1/> AREAS INC INC TRACTION MECHANICA L PHYSICAL 53259 AN[facility] THERAPY 7 [facility] EVALUATIO INC INC N MOD COMPLEX 30 MINS INJECTION J1885 Rossi BARRON MD KETOROLAC PSC TROMETHAM INE PER 15 MG INJECTION J3301 Rossi BARRON MD TRIAMCINO PSC LONE ACETONIDE NOS 10 MG THERAPEUT 64580 Rossi [place] IC 7 BEATRICE SALDIVAR PROPHYLAC PSC TIC/DX INJECTION SUBQ/IM APPL 13430 ANT CAIN MODALITY 6 [facility] 1/> AREAS INC INC TRACTION MECHANICA L APPLICATI 38631 ANT CAIN ON 6 [facility] MODALITY INC INC 1/> AREAS HOT/COLD PACKS APPL 70266 ANT CAIN MODALITY 6 [facility] 1/> AREAS INC INC ELEC STIMJ UNATTENDE D APPL 50180 ANT CAIN MODALITY 6 [facility] 1/> AREAS INC INC ULTRASOUN D EA 15 MIN APPL 24726 ANT CAIN MODALITY 6 [facility] 1/> AREAS INC INC ULTRASOUN D EA 15 MIN APPL 37940 ANT CAIN MODALITY 6 [facility] 1/> AREAS INC INC ELEC STIMJ UNATTENDE D APPL 06595 ANT CAIN MODALITY 6 [facility] 1/> AREAS INC INC TRACTION MECHANICA L THERAPEUT 45368 ANT CAIN IC PX 1/> 6 [facility] AREAS INC INC EACH 15 MIN EXERCISES APPL 76276 ANT CAIN MODALITY 6 [facility] 1/> AREAS INC INC TRACTION MECHANICA L APPL 74468 ANT CAIN MODALITY 6 [facility] 1/> AREAS INC INC ELEC STIMJ UNATTENDE D APPLICATI 99681 ANT CAIN ON 6 [facility] MODALITY INC INC 1/> AREAS HOT/COLD PACKS APPL 55698 ANT CAIN MODALITY 6 [facility] 1/> AREAS INC INC ULTRASOUN D EA 15 MIN APPL 33001 ANT CAIN MODALITY 6 [facility] 1/> AREAS INC INC ULTRASOUN D EA 15 MIN APPLICATI 95487 ANT CAIN ON 6 [facility] MODALITY INC INC 1/> AREAS HOT/COLD PACKS APPL 19264 ANT CAIN MODALITY 6 [facility] 1/> AREAS INC INC ELEC STIMJ UNATTENDE D APPL 97229 ANT CAIN MODALITY 6 [facility] 1/> AREAS INC INC TRACTION MECHANICA L APPL 93390 ANT CAIN MODALITY 6 [facility] 1/> AREAS INC INC TRACTION MECHANICA L THERAPEUT 42401 ANT CAIN IC PX 1/> 6 [facility] AREAS INC INC EACH 15 MIN EXERCISES APPL 08862 ANT CAIN MODALITY 6 [facility] 1/> AREAS INC INC ELEC STIMJ UNATTENDE D APPL 72250 ANT CAIN MODALITY 6 [facility] 1/> AREAS INC INC ULTRASOUN D EA 15 MIN APPL 71963 ANT CAIN MODALITY 6 [facility] 1/> AREAS INC INC ULTRASOUN D EA 15 MIN APPL 90522 ANT CAIN MODALITY 6 [facility] 1/> AREAS INC INC ELEC STIMJ UNATTENDE D THERAPEUT 86374 ANT CAIN IC PX 1/> 6 [facility] AREAS INC INC EACH 15 MIN EXERCISES APPL 11866 ANT CAIN MODALITY 6 [facility] 1/> AREAS INC INC TRACTION MECHANICA L 3D 54132 [place] [facility] RENDERING 6 MEDICAL W/INTERP IMAGING & ASS POSTPROCE SS SUPERVISI ON MRI 11393 [facility] GRACE ALL SPINAL 6 MEDICAL CANAL IMAGING CERVICAL ASS W/O CONTRAST MATRL RADEX 11614 [facility] SPINE 6 [facility] CERVICAL INC INC 4 OR 5 VIEWS THERAPEUT 78883 Rossi MASTERSON IC Wally LUDWIG PROPHYLAC PSC TIC/DX INJECTION SUBQ/IM RADEX 63997 [facility]T CAIN SPINE 6 [facility] LUMBOSACR INC INC AL MINIMUM 4 VIEWS RADEX 93200 [facility] SPINE 6 MEDICAL LUMBOSACR IMAGING AL 2/3 ASS VIEWS INJECTION J1885 Rossi LUDWIG KETOROLAC PSC TROMETHAM INE PER 15 MG RADEX 44281 [place] [facility] ALL SPINE 6 MEDICAL CERVICAL IMAGING 2 OR 3 ASS VIEWS Encounters Encounter Start End Date Code Location Performer Type Date OFFICE 42217 [facility] 7 7 [place] T V[facility]THOPAED 15 IC MINUTES OFFICE 07111 [facility] 7 7 [place] [facility]THOPAED 10 IC MINUTES OFFICE 98841 [facility] [place] [facility] 15 IC MINUTES [facility] ANT - 7 7 [facility] OUTPAT[facility] INC T OFFICE 89214 [facility] 7 7 [place] [facility]THOPAED 15 IC MINUTES OFFICE 86554 [facility] OUTPATIEN 7 7 [facility] T VISIT INC 10 MINUTES HOSPITAL ANT - 7 7 [facility] OUTPATIEN INC T OFFICE 87620 [facility] OUTPATIEN 7 7 BEATRICE SALDIVAR T VISIT PSC 15 MINUTES OFFICE 46829 [facility] 7 7 [place] VISIT ORTHOPAED 10 IC MINUTES OFFICE 29833 A C [place] OUTPATIEN 7 7 BEATRICE SALDIVAR T VISIT PSC 15 MINUTES OFFICE 46425 [facility] 7 [facility] [place] [facility] 30 [facility]OPAED MINUTES [facility]OSPITAL ANT - 7 7 [facility] OUTPATIEN INC T OFFICE 71014 A C [place] OUTPATIEN 7 7 BEATRICE SALDIVAR T VISIT PSC 15 MINUTES OFFICE 94406 A [facility] [place] OUTPATIEN 7 7 BEATRICE SALDIVAR T VISIT PSC 15 MINUTES OFFICE 14018 [facility] [place] OUTPATIEN 7 7 BEATRICE SALDIVAR T VISIT PSC 15 MINUTES HOSPITAL ANT - 7 7 [facility] OUTPATIEN INC T OFFICE 48945 A [facility] [place] OUTPATIEN 7 7 BEATRICE SALDIVAR T VISIT PSC 15 MINUTES OFFICE 33768 Rossi BARRON OUTPATIPREETHI 7 7 BEATRICE SALDIVAR T VISIT [facility] 15 MINUTES [facility] ANT - 6 6 [facility] OUTPATIEN INC T OFFICE 13053 [facility] CRA[facility] OUTPATIEN 6 6 [facility] 45 MEDICAL MINUTES [facility] ANT - 6 6 [facility] OUTPATIEN INC T OFFICE 93073 Rossi MASTERSON OUTPATIEN 6 6 BEATRICE LUDWIG T VISIT [facility] 15 MINUTES [facility] ANT - 6 6 [facility] OUTPATIEN INC T OFFICE 51025 Rossi ADAMS OUTPATIEN 6 6 BEATRICE SALDIVAR T VISIT [facility] 15 MINUTES
--- OUTSIDE RECORDS SUMMARY | 2016-12-13 15:04 | External Medical Summary Rpt | CCD ---
Author Author , TROY Yady TROY Address Unknown Phone [email or web address] Care Team Providers Care Marble Setter Helper Name Role Phone Rossi ARCHER, Rossi Unavailable Unavailable Lissette BARRON MD [facility] Unavailable Unavailable [facility], [facility] EDWARDS, EDWARDS Unavailable Unavailable [facility]AR[facility] ALL, EDWARDS ALL Unavailable Unavailable [facility] Unavailable Unavailable [facility], [facility] DANILO, DANILO Unavailable Unavailable MASTERSON VANI, MASTERSON Unavailable Unavailable VANI [facility] Unavailable Unavailable INC, [facility] CORNEJO, CORNEJO Unavailable Unavailable [facility] Un[facility] Unavailable [facility] KILPELA, KILPELA Unavailable Unavailable KRISHNA BRYAN, KRISHNA BRYAN Unavailable Unavailable CRAIG III CHR, Unavailable Unavailable CRAIG III CHR BEATRICE BARRON Unavailable Unavailable Purpose Continuity of Care Document - 08-05-2015 through 2016 Problems Code Diagnosis DOS Provider Status [id number] RADICULOPAT 10-05-2016 [facility] LUMBOS[facility]AL [facility]THOPAEDIC REGION [id number] PAIN IN 10-05-2016 [place] LEFT LEG [place] [facility] R202 PARESTHESIA 10-05-2016 [facility] SKIN [place] [facility] M5136 OTH 09-22-2016 [facility] INTERVERTEB [place] RAL DISC ORTHOPAEDIC DEGEN LUMBAR REGION [id number] OTHER 08-18-2016 [facility]YLOSIS [facility] LUMBAR INC REGION M5412 RADICULOPAT 08-01-2016 [facility] HY CERVICAL [facility] REGION INC M5416 RADICULOPAT 08-01-2016 [facility] HY LUMBAR [facility] REG[facility] INC M5127 OTH 07-24-2016 [place] INTERVERT MEDICAL RAL DISC IMAGING ASS DISPLACEMEN T LS REGION M545 LOW BACK 07-24-2016 [place] PAIN [facility]ICAL [facility] ASS [id number] OTHER 07-13-2016 [facility] CERVICAL [place] DISC [facility]THOPAEDIC DEGENERATIO N AT C4-C5 LEVEL D97649 OTHER 07-13-2016 [facility] CERVICAL [place] DISC [facility]THOPAEDIC DEGENERATIO N AT C5-C6 LEVEL M542 CERVICALGIA 07-13-2016 Rsosi BARRON MD [facility] F58222 PAIN IN 07-07-2016 [facility] RIGHT UPPER [place] ARM [facility]THOP[facility] T39625 PAIN IN 07-07-2016 [facility] LEFT UPPER [place] [facility] T27659 SPONDYLOSIS 06-19-2016 [place] W/O MEDICAL MYELOPATH/R IMAGING ASS ADICULOPATH Y CERV RGN J40 BRONCHITIS 06-08-2016 A Lissette STEELE MD [facility]SC SPECIFIED ACUTE OR CHRONIC R200 ANESTHESIA 05-29-2016 A Lissette BARRON OF SKIN PSC R50363Y STRAIN 05-29-2016 A Lissette BARRON MUSCLE PSC FASCIA & TENDON LOW BACK INITIAL Z6820 BODY MASS 05-29-2016 A Lissette BARRON INDEX BMI PSC 20.0-20.9 ADULT H9201 OTALGIA 02-29-2016 A Lissette BARRON RIGHT EAR PSC L34465 UNSPECIFIED 02-29-2016 A Lissette BARRON MD [facility]SC TEMPOROMAND IBULAR JOINT D/O UNS SIDE M5022 OT CERV 11-11-2015 [facility] MID-CERVICA L REGION M5489 OTHER 11-11-2015 [facility] M5030 OT 10-21-2015 ANT CERVICAL [facility] DISC INC DEGENERATIO N UNS CERV REGION M5032 OT CERV 10-11-2015 [place] DISC [facility]ICAL DEGENERATIO IMAGING ASS N MID-CERVICA L REGION M5137 OT 10-11-2015 [place] INTERVERTEB MEDICAL RAL DISC IMAGING ASS DEGEN [...] 20 0- 3- 00 06 TO ve PA 05 20 20 09 WN AM 35 [...] UL CY E NT HI AN A PA 00 08 09 20 10 00 HO Ac OM 60 -3 -2 0. 00 ME ti ET 31 1- 9- 00 06 TO ve MCDANIELS 58 20 20 0 09 WN ZI 65 17 17 34 NE 8 92 PH -D AR M MA SY CY RU P OF CY NT HI AN A PA 59 08 09 30 30 00 HO [...] UL CY E NT HI AN A CY 69 08 09 90 30 00 HO Ac CL 09 -2 -1 .0 00 ME ti OB 70 1- 5- 00 06 TO ve EN 84 20 20 09 WN ZA 61 17 17 28 PA 5 05 PH IN AR E MA 10 CY MG OF TA CY BL NT ET HI AN A CI 65 08 09 30 30 00 HO Ac TA 16 -2 -1 .0 00 ME ti LO 20 1- 5- 00 06 TO ve PA 05 20 20 09 WN AM 35 17 17 10 0 23 PH HB AR R MA 20 CY MG OF TA CY BL NT ET HI AN A PA 59 07 08 20 10 00 HO [...] 09 WN ZA 61 17 17 10 PA 5 22 PH IN AR E MA 10 CY MG OF TA CY BL NT ET HI AN A CI 65 07 08 30 30 00 HO Ac TA 16 -1 -1 .0 00 ME ti LO 20 9- 1- 00 06 TO ve PA 05 20 20 09 WN AM 35 [...] 17 17 47 E 6 20 PH PA AR OP MA CY 50 OF MC G CY SP NT RA HI Y AN A CY 69 06 07 30 10 00 HO Ac CL 09 -2 -2 .0 00 ME ti OB 70 9- 8- 00 06 TO ve EN 84 20 20 08 WN ZA 61 17 17 89 PA 5 01 PH IN AR E MA 10 CY MG OF TA CY BL NT ET HI AN A NA 69 06 07 60 30 00 HO Ac PA 09 -1 -1 .0 00 ME ti [...] 08 WN ZA 61 17 17 89 PA 5 01 PH IN AR E MA 10 CY MG OF TA CY BL NT ET HI AN A HY 00 05 06 [address] 60 -1 -0 .0 00 ME ti OC 33 2- 9- 00 02 TO ve OD 89 20 20 01 WN ON 03 17 17 36 -A 2 45 PH CE AR TA MA MT CY NO PH OF EN CY 5- NT 32 HI 5 AN A CY 69 05 06 30 10 00 HO Ac CL 09 -1 -0 .0 00 ME ti OB 70 1- 9- 00 06 TO ve EN 84 20 20 08 WN ZA 61 17 17 47 PA 5 19 PH IN AR E MA 10 CY MG OF TA CY BL NT ET HI AN A CY 69 04 05 30 10 00 HO Ac CL 09 -2 -2 .0 00 ME ti OB 70 8- 6- 00 06 TO ve EN 84 20 20 08 WN ZA 61 17 17 47 PA 5 19 PH IN AR E MA 10 CY MG OF TA CY BL NT ET HI AN A HY 00 04 05 [address] 60 -2 -2 .0 00 ME ti OC 33 8- 6- 00 02 TO ve OD 89 20 20 01 WN ON 03 17 17 35 -A 2 28 PH CE AR TA MA MT CY NO PH OF EN CY 5- NT 32 HI 5 AN A PA 59 04 05 20 10 00 HO Ac ED 74 -2 -1 .0 00 ME ti NI 60 0- 9- 00 06 TO ve SO 17 20 20 08 WN NE 50 17 17 54 9 80 PH 20 AR MA MG CY TA OF BL ET CY NT HI AN A PA 00 04 05 14 7 00 HO Ac OM 60 -2 -1 0. 00 ME ti ET 31 0- 9- 00 06 TO ve MCDANIELS 58 20 20 0 08 WN ZI 65 17 17 54 NE 8 81 PH -D AR M MA SY CY RU P OF CY NT HI AN A AM 00 04 05 20 10 00 HO Ac OX 09 -2 -1 .0 00 ME ti IC 32 0- 9- 00 06 TO ve IL 26 20 20 08 WN LI 40 17 17 54 N 1 82 PH 87 AR 5 MA MG CY TA OF BL ET CY NT HI AN A CY 00 04 05 30 10 00 HO Ac CL 60 -1 -0 .0 00 ME ti OB 33 0- 5- 00 06 TO ve EN 07 20 20 08 WN ZA 93 17 17 47 PA 2 19 PH IN AR E MA 10 CY MG OF TA CY BL NT ET HI AN A FL 50 04 05 16 30 00 HO Ac UT 38 -1 -0 .0 00 ME ti IC 30 0- 5- 00 06 TO ve 70 20 20 08 WN ON 01 17 17 47 E 6 20 PH PA AR OP MA CY 50 OF MC G CY SP NT RA HI Y AN A HY 00 04 05 [address] 60 -1 -0 .0 00 ME ti OC 33 0- 5- 00 02 TO ve OD 89 20 20 01 WN ON 03 17 17 33 -A 2 55 PH CE AR TA MA MT CY NO PH OF EN CY 5- NT 32 HI 5 AN A CY 00 03 04 30 10 00 HO Ac CL 60 -3 -2 .0 00 ME ti OB 33 0- 8- 00 06 TO ve EN 07 20 20 08 WN ZA 93 17 17 32 PA 2 80 PH IN AR E MA 10 CY MG OF TA CY BL NT ET HI AN A PA 59 03 04 20 10 00 HO Ac ED 74 -2 -2 .0 00 ME ti NI 60 7- 1- 00 06 TO ve SO 17 20 20 08 WN NE 50 17 17 40 9 06 PH 20 AR MA MG CY TA OF BL ET CY NT HI AN A OM 68 03 04 30 30 00 HO Ac EP 46 -1 -1 .0 00 ME ti RA 20 6- 4- 00 06 TO ve ZO 39 20 20 08 WN LE 61 17 [address] AR MA 20 CY MG OF CA CY PS NT UL HI E AN A NA 68 03 04 60 30 00 HO Ac PA 46 -1 -1 .0 00 ME ti [...] NT ET HI AN A CY 00 03 04 30 10 00 HO Ac CL 60 -1 -0 .0 00 ME ti OB 33 5- 7- 00 06 TO ve EN 07 20 20 08 WN ZA 93 17 17 32 PA 2 80 PH IN AR E MA 10 CY MG OF TA CY BL NT ET HI AN A CY 00 02 03 30 10 00 HO Ac CL 60 -2 -2 .0 00 ME ti OB 33 7- 4- 00 06 TO ve EN 07 20 20 07 WN ZA 93 17 17 98 PA 2 23 PH IN AR E MA 10 CY MG OF TA CY BL NT ET HI AN A CY 00 02 03 30 10 00 HO Ac CL 60 -1 -1 .0 00 ME ti OB 33 3- 0- 00 06 TO ve EN 07 20 20 07 WN ZA 93 17 17 98 PA 2 23 PH IN AR E MA 10 CY MG OF TA CY BL NT ET HI AN A CY 00 01 02 30 10 00 HO Ac CL 60 -1 -1 .0 00 ME ti OB 33 9- 7- 00 06 TO ve EN 07 20 20 07 WN ZA 93 17 17 98 PA 2 23 PH IN AR E MA [...] -A 1 39 CY CE TA #0 MT 23 NO 32 PH EN 5- 32 [...] 16 17 38 E 6 68 PH PA AR OP MA CY 50 OF MC G CY SP NT RA HI Y AN A Procedures Procedure DOS Code Location Performer Comment NEEDLE 83910 [facility] EM[facility] EA 7 [place] EXTREMTY ORTHOPAED W/PARASPI IC NL AREA COMPLETE NERVE 63737 [facility] CONDUCTIO 7 [place] N STUDIES ORTHOPAED 9-10 [place] [address]284 [facility] CAIN DX/THER 7 [facility] AGT PVRT INC INC FACET JT LMBR/SAC 1 LEVEL NJX 85513 ANT CAIN DX/THER 7 [facility] AGT PVRT INC INC FACET JT LMBR/SAC 2ND LEVEL MRI 46710 [place] DANILO SPINAL 7 MEDICAL CANAL IMAGING LUMBAR ASS W/O CONTRAST MATERIAL 3D 07222 [facility] W/INTERP IMAGING & ASS POSTPROCE SS SUPERVISI ON NERVE 95250 [facility] CONDUCTIO 7 [place] N STUDIES ORTHOPAED 9-10 IC STUDIES NEEDLE 58471 [facility] [place] EMG EA 7 [place] EXTREMTY ORTHOPAED W/PARASPI IC NL AREA COMPLETE RADEX 04322 ANT CAIN SPINE 7 [facility] CERVICAL INC INC 4 OR 5 VIEWS RADEX 57007 [place] EDWARDS SPINE 7 MEDICAL LUMBOSACR IMAGING AL 2/3 ASS VIEWS RADEX 69927 ANT CAIN SPINE 7 [facility] LUMBOSACR INC INC AL MINIMUM 4 VIEWS APPLICATI 41139 ANT CAIN ON 7 [facility] MODALITY INC INC 1/> AREAS HOT/COLD PACKS APPL 15890 ANT [facility] MODALITY 7 [facility] 1/> AREAS INC INC TRACTION MECHANICA L APPL 92877 ANT CAIN MODALITY 7 [facility] 1/> AREAS INC INC ELEC STIMJ UNATTENDE D APPL 13586 ANT CAIN MODALITY 7 [facility] 1/> AREAS INC INC ELEC STIMJ UNATTENDE D APPL 80461 ANT CAIN MODALITY 7 [facility] 1/> AREAS INC INC TRACTION MECHANICA L THERAPEUT 08960 ANT CAIN IC PX 1/> 7 [facility] AREAS INC INC EACH 15 MIN EXERCISES APPLICATI 50614 ANT CAIN ON 7 [facility] MODALITY INC INC 1/> AREAS HOT/COLD PACKS APPLICATI 10992 ANT CAIN ON 7 [facility] MODALITY INC INC 1/> AREAS HOT/COLD PACKS APPL 52931 ANT CAIN MODALITY 7 [facility] 1/> AREAS INC INC TRACTION MECHANICA L APPL 39116 ANT CAIN MODALITY 7 [facility] 1/> AREAS INC INC ELEC STIMJ UNATTENDE D APPL 48727 ANT CAIN MODALITY 7 [facility] 1/> AREAS INC INC ELEC STIMJ UNATTENDE D APPL 28802 ANT CAIN MODALITY 7 [facility] 1/> AREAS INC INC TRACTION MECHANICA L APPLICATI 37443 ANT CAIN ON 7 [facility] MODALITY INC INC 1/> AREAS HOT/COLD PACKS PHYSICAL 68042 ANT CAIN THERAPY 7 [facility] EVALUATIO INC INC N MOD COMPLEX 30 MINS THERAPEUT 38104 Rossi VALADEZ 7 BEATRICE SALDIVAR PROPHYLAC PSC TIC/DX INJECTION SUBQ/IM INJECTION J3301 A C KILJUAN BARRON MD TRIAMCINO PSC LONE ACETONIDE NOS 10 MG INJECTION J1885 Rossi BARRON MD KETOROLAC PSC TROMETHAM INE PER 15 MG APPLICATI 96504 ANT CAIN ON 6 [facility] MODALITY INC INC 1/> AREAS HOT/COLD PACKS APPL 00894 ANT CAIN MODALITY 6 [facility] 1/> AREAS INC INC ULTRASOUN D EA 15 MIN APPL 77800 ANT CAIN MODALITY 6 [facility] 1/> AREAS INC INC ELEC STIMJ UNATTENDE D APPL 67053 ANT CAIN MODALITY 6 [facility] 1/> AREAS INC INC TRACTION MECHANICA L APPL 96006 ANT CAIN MODALITY 6 [facility] 1/> AREAS INC INC TRACTION MECHANICA L APPL 01426 ANT CAIN MODALITY 6 [facility] 1/> AREAS INC INC ELEC STIMJ UNATTENDE D THERAPEUT 57139 ANT CAIN IC PX 1/> 6 [facility] AREAS INC INC EACH 15 MIN EXERCISES APPL 35361 ANT CAIN MODALITY 6 [facility] 1/> AREAS INC INC ULTRASOUN D EA 15 MIN APPL 39951 ANT CAIN MODALITY 6 [facility] 1/> AREAS INC INC ULTRASOUN D EA 15 MIN APPLICATI 42645 ANT CAIN ON 6 [facility] MODALITY INC INC 1/> AREAS HOT/COLD PACKS APPL 47627 ANT CAIN MODALITY 6 [facility] 1/> AREAS INC INC ELEC STIMJ UNATTENDE D APPL 82158 ANT CAIN MODALITY 6 [facility] 1/> AREAS INC INC TRACTION MECHANICA L APPL 13133 ANT CAIN MODALITY 6 [facility] 1/> AREAS INC INC TRACTION MECHANICA L APPL 21526 ANT CAIN MODALITY 6 [facility] 1/> AREAS INC INC ELEC STIMJ UNATTENDE D APPLICATI 28239 ANT CAIN ON 6 [facility] MODALITY INC INC 1/> AREAS HOT/COLD PACKS APPL 46902 ANT CAIN MODALITY 6 [facility] 1/> AREAS INC INC ULTRASOUN D EA 15 MIN APPL 80252 ANT CAIN MODALITY 6 [facility] 1/> AREAS INC INC ULTRASOUN D EA 15 MIN THERAPEUT 09669 ANT CAIN IC PX 1/> 6 [facility] AREAS INC INC EACH 15 MIN EXERCISES APPL 16526 ANT CAIN MODALITY 6 [facility] 1/> AREAS INC INC TRACTION MECHANICA L APPL 45479 ANT CAIN MODALITY 6 [facility] 1/> AREAS INC INC ELEC STIMJ UNATTENDE D APPL 89277 ANT CAIN MODALITY 6 [facility] 1/> AREAS INC INC ELEC STIMJ UNATTENDE D APPL 81688 ANT CAIN MODALITY 6 [facility] 1/> AREAS INC INC TRACTION MECHANICA L THERAPEUT 58684 ANT CAIN IC PX 1/> 6 [facility] AREAS INC INC EACH 15 MIN EXERCISES APPL 61392 ANT CAIN MODALITY 6 [facility] 1/> AREAS INC INC ULTRASOUN D EA 15 MIN 3D 24359 PAULINE EDWARDS ALL RENDERING 6 MEDICAL W/INTERP IMAGING & ASS POSTPROCE SS SUPERVISI ON MRI 78607 ANT CAIN SPINAL 6 [facility] CANAL INC INC CERVICAL W/O CONTRAST MATRL RADEX 48408 ANT CAIN SPINE 6 [facility] CERVICAL INC INC 4 OR 5 VIEWS INJECTION J1885 Rossi LUDWIG KETOROLAC PSC TROMETHAM INE PER 15 MG RADEX 78310 PAULINE EDWARDS ALL SPINE 6 MEDICAL CERVICAL IMAGING 2 OR 3 ASS VIEWS THERAPEUT 07975 Rossi LUDWIG PROPHYLAC PSC TIC/DX INJECTION SUBQ/IM RADEX 70033 PAULINE EDWARDS ALL SPINE 6 MEDICAL LUMBOSACR IMAGING AL 2/3 ASS VIEWS RADEX 59074 ANT CAIN SPINE 6 [facility] LUMBOSACR INC INC AL MINIMUM 4 VIEWS Encounters Encounter Start End Date Code Location Performer Type Date OFFICE 77692 [facility] [place] [facility] 15 IC MINUTES OFFICE 54601 [facility] [place] [facility] 10 IC MINUTES OFFICE 31871 [facility] [place] [facility] 15 IC MINUTES [facility] ANT - 7 7 [facility] OUTPATIEN INC T OFFICE 13578 [facility] 7 7 [place] T VIS[facility]THOPAED 15 IC MINUTES OFFICE 02470 ANT OUTPATIEN 7 7 [facility] T VISIT INC 10 MINUTES HOSPITAL ANT - 7 7 [facility] OUTPATIEN INC T OFFICE 27760 [facility] 7 7 [place] T VISIT [facility]THOPAED 15 IC MINUTES OFFICE 05806 [facility] 7 7 [place] T VISIT ORTHOPAED 10 IC MINUTES OFFICE 54872 A C KILPELA OUTPATIEN 7 7 BEATRICE SALDIVAR T VISIT PSC 15 MINUTES OFFICE 40992 [facility] 7 7 [place] T NEW 30 [facility]THOPAED MINUTES HOSPITAL ANT - 7 7 [facility] OUTPATIEN INC T OFFICE 35198 A C KILPELA OUTPATIEN 7 7 BEATRICE SALDIVAR T VISIT PSC 15 MINUTES OFFICE 59643 A C KILPELA OUTPATIEN 7 7 BEATRICE SALDIVAR T VISIT PSC 15 MINUTES OFFICE 06002 A C KILPELA OUTPATIEN 7 7 BEATRICE SALDIVAR T VISIT PSC 15 MINUTES HOSPITAL ANT - 7 7 [facility] OUTPATIEN INC T OFFICE 54968 A C KILPELA OUTPATIEN 7 7 BEATRICE SALDIVAR T VISIT [facility] 15 MINUTES OFFICE 10330 Rossi BERNARDO 7 7 BEATRICE SALDIVAR T VISIT [facility] 15 MINUTES [facility] ANT - 6 6 [facility] OUTPATIEN [facility]31 [facility] 6 [facility] NEW 45 MEDICAL MINUTES [facility] ANT - 6 6 [facility] OUTPATIEN [facility] T OFFICE 48331 A Lissette MASTEROSN OUTPATIEN 6 6 BEATRICE LUDWIG T VISIT [facility] 15 MINUTES [facility] ANT - 6 6 [facility] OUTPATIEN [facility] T OFFICE 51739 Rossi ADAMS OUTPATIPREETHI 6 6 BEATRICE SALDIVAR T VISIT [facility] 15 MINUTES
--- OUTSIDE RECORDS SUMMARY | 2016-12-13 15:04 | External Medical Summary Rpt | CCD ---
Author Author , TROY Yady TROY Address Unknown Phone [email or web address] Care Team Providers Care Animal Care Provider Name Role Phone Rossi ARCHER, Rossi Unavailable Unavailable Lissette BARRON MD [facility] Unavailable Unavailable [facility], [facility] EDWARDS, EDWARDS Unavailable Unavailable [facility], EDWARDS ALL Unavailable Unavailable [facility] Unavailable Unavailable [facility], [facility] DANILO, DANILO Unavailable Unavailable MASTERSON VANI, MASTERSON Unavailable Unavailable VANI [facility] Unavailable Unavailable INC, [facility] CORNEJO, CORNEJO Unavailable Unavailable [facility] Un[facility] Un[facility] KILPELA, KILPELA Unavailable Unavailable KRISHNA BRYAN, KRISHNA BRYAN Unavailable Unavailable CARIG III CHR, Unavailable Unavailable CRAIG III CHR BEATRICE BARRON Unavailable Unavailable Purpose Continuity of Care Document - 08-05-2015 through 2016 Problems Code Diagnosis DOS Provider Status [id number] RADICULOPAT 10-05-2016 [facility] LUMBOSACRAL [facility]THOPAEDIC REGION [id number] PAIN IN 10-05-2016 [place] LEFT LEG [facility] [facility] R202 PARESTHESIA 10-05-2016 [facility] SKIN [place] [facility] M5136 OTH 09-22-2016 [facility] INTERVERTEB [place] RAL DISC ORTHOPAEDIC DEGEN LUMBAR REGION [id number] OTHER 08-18-2016 NAT SPONDYLOSIS [facility] LUMBAR INC REGION M5412 RADICULOPAT 08-01-2016 AN[facility] HY CERVICAL [facility] INC M5416 RADICULOPAT 08-01-2016 [facility] HY LUMBAR [facility] REG[facility] INC M5127 OTH 07-24-2016 [place] INTERVERT [facility] RAL DISC IMAGING ASS DISPLACEMEN T LS REGION M545 LOW BACK 07-24-2016 [place] PAIN [facility] [id number] OTHER 07-13-2016 [facility] CERVICAL [place] DISC [facility]THOPAEDIC DEGENERATIO N AT C4-C5 LEVEL [id number] OTHER 07-13-2016 [facility] CERVICAL [place] DISC [facility]THOPAEDIC DEGENERATIO N AT C5-C6 LEVEL M542 CERVICALGIA 07-13-2016 Rossi BARRON MD [facility] [id number] PAIN IN 07-07-2016 [facility] RIGHT UPPER [place] ARM [facility]TH[facility]EDIC Z29373 PAIN IN 07-07-2016 [facility] LEFT UPPER [place] ARM [facility] N84686 SPONDYLOSIS 06-19-2016 [place] W/O MEDICAL MYELOPATH/R IMAGING ASS ADICULOPATH Y CERV RGN J40 BRONCHITIS 06-08-2016 A Lissette STEELE MD PSC SPECIFIED ACUTE OR CHRONIC R200 ANESTHESIA 05-29-2016 A Lissette BARRON OF SKIN PSC [id number] STRAIN 05-29-2016 A Lissette BARRON MUSCLE PSC FASCIA & TENDON LOW BACK INITIAL Z6820 BODY MASS 05-29-2016 A Lissette BARRON INDEX BMI PSC 20.0-20.9 ADULT H9201 OTALGIA 02-29-2016 A Lissette BARRON RIGHT EAR PSC O17468 UNSPECIFIED 02-29-2016 A Lissette BARRON MD P[facility] TEMPOROMAND IBULAR JOINT D/O UNS SIDE M5022 OT CERV 11-11-2015 [facility] T [facility] MID-CERVICA L REGION M5489 OTHER 11-11-2015 [facility] M5030 OT 10-21-2015 ANT CERVICAL [facility] DISC INC DEGENERATIO N UNS CERV REGION M5032 OT CERV 10-11-2015 [place] [facility] DEGENERATIO IMAGING ASS N MID-CERVICA L REGION M5137 OT 10-11-2015 [place] [facility] RAL DISC IMAGING ASS DEGEN [...] 20 0- 3- 00 06 TO ve MS 05 20 20 09 WN AM 35 [...] UL CY E NT HI AN A MS 00 08 09 20 10 00 HO Ac OM 60 -3 -2 0. 00 ME ti ET 31 1- 9- 00 06 TO ve MCDANIELS 58 20 20 0 09 WN ZI 65 17 17 34 NE 8 92 PH -D AR M MA SY CY RU P OF CY NT HI AN A MS 59 08 09 30 30 00 HO [...] 09 WN ZA 61 17 17 28 MS 5 05 PH IN AR E MA 10 CY MG OF TA CY BL NT ET HI AN A CI 65 08 09 30 30 00 HO Ac TA 16 -2 -1 .0 00 ME ti LO 20 1- 5- 00 06 TO ve MS 05 20 20 09 WN AM 35 17 17 10 0 23 PH HB AR R MA 20 CY MG OF TA CY BL NT ET HI AN A MS 59 07 08 20 10 00 HO [...] 09 WN ZA 61 17 17 10 MS 5 22 PH IN AR E MA 10 CY MG OF TA CY BL NT ET HI AN A CI 65 07 08 30 30 00 HO Ac TA 16 -1 -1 .0 00 ME ti LO 20 9- 1- 00 06 TO ve MS 05 20 20 09 WN AM 35 [...] 17 17 47 E 6 20 PH MS AR OP MA CY 50 OF MC G CY SP NT RA HI Y AN A CY 69 06 07 30 10 00 HO Ac CL 09 -2 -2 .0 00 ME ti OB 70 9- 8- 00 06 TO ve EN 84 20 20 08 WN ZA 61 17 17 89 MS 5 01 PH IN AR E MA 10 CY MG OF TA CY BL NT ET HI AN A NA 69 06 07 60 30 00 HO Ac MS 09 -1 -1 .0 00 ME ti [...] 08 WN ZA 61 17 17 89 MS 5 01 PH IN AR E MA 10 CY MG OF TA CY BL NT ET HI AN A HY 00 05 06 [address] 60 -1 -0 .0 00 ME ti OC 33 2- 9- 00 02 TO ve OD 89 20 20 01 WN ON 03 17 17 36 -A 2 45 PH CE AR TA MA VT CY NO PH OF EN CY 5- NT 32 HI 5 AN A CY 69 05 06 30 10 00 HO Ac CL 09 -1 -0 .0 00 ME ti OB 70 1- 9- 00 06 TO ve EN 84 20 20 08 WN ZA 61 17 17 47 MS 5 19 PH IN AR E MA 10 CY MG OF TA CY BL NT ET HI AN A CY 69 04 05 30 10 00 HO Ac CL 09 -2 -2 .0 00 ME ti OB 70 8- 6- 00 06 TO ve EN 84 20 20 08 WN ZA 61 17 17 47 MS 5 19 PH IN AR E MA 10 CY MG OF TA CY BL NT ET HI AN A HY 00 04 05 [address] 60 -2 -2 .0 00 ME ti OC 33 8- 6- 00 02 TO ve OD 89 20 20 01 WN ON 03 17 17 35 -A 2 28 PH CE AR TA MA VT CY NO PH OF EN CY 5- NT 32 HI 5 AN A MS 59 04 05 20 10 00 HO Ac ED 74 -2 -1 .0 00 ME ti NI 60 0- 9- 00 06 TO ve SO 17 20 20 08 WN NE 50 17 17 54 9 80 PH 20 AR MA MG CY TA OF BL ET CY NT HI AN A MS 00 04 05 14 7 00 HO [...] 08 WN ZA 93 17 17 47 MS 2 19 PH IN AR E MA 10 CY MG OF TA CY BL NT ET HI AN A FL 50 04 05 16 30 00 HO Ac UT 38 -1 -0 .0 00 ME ti IC 30 0- 5- 00 06 TO ve 70 20 20 08 WN ON 01 17 17 47 E 6 20 PH MS AR OP MA CY 50 OF MC G CY SP NT RA HI Y AN A HY 00 04 05 [address] 60 -1 -0 .0 00 ME ti OC 33 0- 5- 00 02 TO ve OD 89 20 20 01 WN ON 03 17 17 33 -A 2 55 PH CE AR TA MA VT CY NO PH OF EN CY 5- NT 32 HI 5 AN A CY 00 03 04 30 10 00 HO Ac CL 60 -3 -2 .0 00 ME ti OB 33 0- 8- 00 06 TO ve EN 07 20 20 08 WN ZA 93 17 17 32 MS 2 80 PH IN AR E MA 10 CY MG OF TA CY BL NT ET HI AN A MS 59 03 04 20 10 00 HO [...] 03 04 60 30 00 HO Ac MS 46 -1 -1 .0 00 ME ti [...] 08 WN ZA 93 17 17 32 MS 2 80 PH IN AR E MA 10 CY MG OF TA CY BL NT ET HI AN A CY 00 02 03 30 10 00 HO Ac CL 60 -2 -2 .0 00 ME ti OB 33 7- 4- 00 06 TO ve EN 07 20 20 07 WN ZA 93 17 17 98 MS 2 23 PH IN AR E MA 10 CY MG OF TA CY BL NT ET HI AN A CY 00 02 03 30 10 00 HO Ac CL 60 -1 -1 .0 00 ME ti OB 33 3- 0- 00 06 TO ve EN 07 20 20 07 WN ZA 93 17 17 98 MS 2 23 PH IN AR E MA 10 CY MG OF TA CY BL NT ET HI AN A CY 00 01 02 30 10 00 HO Ac CL 60 -1 -1 .0 00 ME ti OB 33 9- 7- 00 06 TO ve EN 07 20 20 07 WN ZA 93 17 17 98 MS 2 23 PH IN AR E MA [...] -A 1 39 CY CE TA #0 VT 23 NO 32 PH EN 5- 32 [...] 16 17 38 E 6 68 PH MS AR OP MA CY 50 OF MC G CY SP NT RA HI Y AN A Procedures Procedure DOS Code Location Performer Comment NEEDLE 91394 [facility] EMG EA 7 [place] EXTREMTY ORTHOPAED W/PARASPI IC NL AREA COMPLETE NERVE 29100 [facility] [place] CONDUCTIO 7 [place] N STUDIES ORTHOPAED 9-10 IC STUDIES NJX 10337 ANT CAIN DX/THER 7 [facility] AGT PVRT INC INC FACET JT LMBR/SAC 1 LEVEL NJX 70033 ANT CAIN DX/THER 7 [facility] AGT PVRT INC INC FACET JT LMBR/SAC 2ND LEVEL MRI 88719 [place] DANILO SPINAL 7 MEDICAL CANAL IMAGING LUMBAR ASS W/O CONTRAST MATERIAL 3D 12817 [facility]ICAL W/INTERP IMAGING & ASS POSTPROCE SS SUPERVISI ON NERVE 29645 [facility] [place] CONDUCTIO 7 [place] N STUDIES ORTHOPAED 9-10 IC STUDIES NEEDLE 72335 [facility] [place] EMG EA 7 [place] EXTREMTY ORTHOPAED W/PARASPI IC NL AREA COMPLETE RADEX 62178 ANT [facility]IN SPINE 7 [facility] CERVICAL INC INC 4 OR 5 VIEWS RADEX 38743 [place] EDWARDS SPINE 7 MEDICAL LUMBOSACR IMAGING AL 2/3 ASS VIEWS RADEX 36016 ANT CAIN SPINE 7 [facility] LUMBOSACR INC INC AL MINIMUM 4 VIEWS APPLICATI 17233 ANT CAIN ON 7 [facility] MODALITY INC INC 1/> AREAS HOT/COLD PACKS APPL 95486 ANT [facility] MODALITY 7 [facility] 1/> AREAS INC INC TRACTION MECHANICA L APPL 56380 ANT CAIN MODALITY 7 [facility] 1/> AREAS INC INC ELEC STIMJ UNATTENDE D APPL 54177 ANT CAIN MODALITY 7 [facility] 1/> AREAS INC INC ELEC STIMJ UNATTENDE D APPL 26369 ANT CAIN MODALITY 7 [facility] 1/> AREAS INC INC TRACTION MECHANICA L THERAPEUT 04139 ANT CAIN IC PX 1/> 7 [facility] AREAS INC INC EACH 15 MIN EXERCISES APPLICATI 86852 ANT CAIN ON 7 [facility] MODALITY INC INC 1/> AREAS HOT/COLD PACKS APPLICATI 44730 ANT CAIN ON 7 [facility] MODALITY INC INC 1/> AREAS HOT/COLD PACKS APPL 80608 ANT CAIN MODALITY 7 [facility] 1/> AREAS INC INC TRACTION MECHANICA L APPL 18446 ANT CAIN MODALITY 7 [facility] 1/> AREAS INC INC ELEC STIMJ UNATTENDE D APPL 60761 ANT CAIN MODALITY 7 [facility] 1/> AREAS INC INC ELEC STIMJ UNATTENDE D APPL 87276 ANT CAIN MODALITY 7 [facility] 1/> AREAS INC INC TRACTION MECHANICA L APPLICATI 99545 ANT CAIN ON 7 [facility] MODALITY INC INC 1/> AREAS HOT/COLD PACKS PHYSICAL 76646 ANT CAIN THERAPY 7 [facility] EVALUATIO INC INC N MOD COMPLEX 30 MINS THERAPEUT 04091 Rossi VALADEZ 7 BEATRICE SALDIVAR PROPHYLAC PSC TIC/DX INJECTION SUBQ/IM INJECTION J3301 A C KILJUAN BARRON MD TRIAMCINO PSC LONE ACETONIDE NOS 10 MG INJECTION J1885 Rossi BARRON MD KETOROLAC PSC TROMETHAM INE PER 15 MG APPLICATI 53989 ANT CAIN ON 6 [facility] MODALITY INC INC 1/> AREAS HOT/COLD PACKS APPL 97383 ANT CAIN MODALITY 6 [facility] 1/> AREAS INC INC ULTRASOUN D EA 15 MIN APPL 81699 ANT CAIN MODALITY 6 [facility] 1/> AREAS INC INC ELEC STIMJ UNATTENDE D APPL 38922 ANT CAIN MODALITY 6 [facility] 1/> AREAS INC INC TRACTION MECHANICA L APPL 34717 ANT CAIN MODALITY 6 [facility] 1/> AREAS INC INC TRACTION MECHANICA L APPL 62490 ANT CAIN MODALITY 6 [facility] 1/> AREAS INC INC ELEC STIMJ UNATTENDE D THERAPEUT 69618 ANT CAIN IC PX 1/> 6 [facility] AREAS INC INC EACH 15 MIN EXERCISES APPL 45103 ANT CAIN MODALITY 6 [facility] 1/> AREAS INC INC ULTRASOUN D EA 15 MIN APPL 20100 ANT CAIN MODALITY 6 [facility] 1/> AREAS INC INC ULTRASOUN D EA 15 MIN APPLICATI 43928 ANT CAIN ON 6 [facility] MODALITY INC INC 1/> AREAS HOT/COLD PACKS APPL 92413 ANT CAIN MODALITY 6 [facility] 1/> AREAS INC INC ELEC STIMJ UNATTENDE D APPL 30266 ANT CAIN MODALITY 6 [facility] 1/> AREAS INC INC TRACTION MECHANICA L APPL 38738 ANT CAIN MODALITY 6 [facility] 1/> AREAS INC INC TRACTION MECHANICA L APPL 93784 ANT CAIN MODALITY 6 [facility] 1/> AREAS INC INC ELEC STIMJ UNATTENDE D APPLICATI 98300 ANT CAIN ON 6 [facility] MODALITY INC INC 1/> AREAS HOT/COLD PACKS APPL 33455 ANT CAIN MODALITY 6 [facility] 1/> AREAS INC INC ULTRASOUN D EA 15 MIN APPL 64020 ANT CAIN MODALITY 6 [facility] 1/> AREAS INC INC ULTRASOUN D EA 15 MIN THERAPEUT 01999 ANT CAIN IC PX 1/> 6 [facility] AREAS INC INC EACH 15 MIN EXERCISES APPL 81124 ANT CAIN MODALITY 6 [facility] 1/> AREAS INC INC TRACTION MECHANICA L APPL 77157 ANT CAIN MODALITY 6 [facility] 1/> AREAS INC INC ELEC STIMJ UNATTENDE D APPL 40936 ANT CAIN MODALITY 6 [facility] 1/> AREAS INC INC ELEC STIMJ UNATTENDE D APPL 70019 ANT CAIN MODALITY 6 [facility] 1/> AREAS INC INC TRACTION MECHANICA L THERAPEUT 24534 ANT CAIN IC PX 1/> 6 [facility] AREAS INC INC EACH 15 MIN EXERCISES APPL 24820 ANT CAIN MODALITY 6 [facility] 1/> AREAS INC INC ULTRASOUN D EA 15 MIN 3D 90387 [facility] EDWARDS ALL RENDERING 6 MEDICAL W/INTERP IMAGING & ASS POSTPROCE SS SUPERVISI ON MRI 91700 ANT CAIN SPINAL 6 [facility] CANAL INC INC CERVICAL W/O CONTRAST MATRL RADEX 50115 ANT CAIN SPINE 6 [facility] CERVICAL INC INC 4 OR 5 VIEWS INJECTION J1885 Rossi LUDWIG KETOROLAC PSC TROMETHAM INE PER 15 MG RADEX 04542 PAULINE EDWARDS ALL SPINE 6 MEDICAL CERVICAL IMAGING 2 OR 3 ASS VIEWS THERAPEUT 54864 Rossi LUDWIG PROPHYLAC PSC TIC/DX INJECTION SUBQ/IM RADEX 72083 PAULINE EDWARDS ALL SPINE 6 MEDICAL LUMBOSACR IMAGING AL 2/3 ASS VIEWS RADEX 36574 ANT CAIN SPINE 6 [facility] LUMBOSACR INC INC AL MINIMUM 4 VIEWS Encounters Encounter Start End Date Code Location Performer Type Date OFFICE 11703 [facility] 7 7 [place] T VISIT ORTHOPAED 15 IC MINUTES OFFICE 95200 [facility] 7 7 [place] T VISIT [facility]THOPAED 10 IC MINUTES OFFICE 88631 [facility] 7 7 [place] [facility] 15 IC MINUTES [facility]OSP[facility] ANT - 7 7 [facility] OUT[facility] INC T OFFICE 16621 [facility] [place] OUTPATIEN 7 7 [place] T VISIT ORTHOPAED 15 IC MINUTES OFFICE 69254 ANT OUTPATIEN 7 7 [facility] T VISIT INC 10 MINUTES HOSPITAL ANT - 7 7 [facility] OUTPATIEN INC T OFFICE 52569 [facility] OUTPATIEN 7 7 [place] T VISIT ORTHOPAED 15 IC MINUTES OFFICE 56381 [facility] OUTPATIEN 7 7 [place] T VISIT ORTHOPAED 10 IC MINUTES OFFICE 11676 A C KILPELA OUTPATIEN 7 7 BEATRICE SALDIVAR T VISIT PSC 15 MINUTES OFFICE 52527 [facility] OUTPATIEN 7 7 [place] NEW 30 ORTHOPAED MINUTES HOSPITAL ANT - 7 7 [facility] OUTPATI[facility] INC T OFFICE 57452 A C KILPELA OUTPATIEN 7 7 BEATRICE SALDIVAR T VISIT PSC 15 MINUTES OFFICE 13026 A C KILPELA OUTPATIEN 7 7 BEATRICE SALDIVAR T VISIT PSC 15 MINUTES OFFICE 98908 A C [facility] OUTPATIEN 7 7 BEATRICE SALDIVAR T VISIT PSC 15 MINUTES HOSPITAL ANT - 7 7 [facility] OUTPATIEN INC T OFFICE 20874 A C KILPELA OUTPATIEN 7 7 BEATRICE SALDIVAR T VISIT [facility] 15 MINUTES OFFICE 61719 Rossi BERNARDO 7 7 BEATRICE SALDIVAR T VISIT [facility] 15 MINUTES [facility] ANT - 6 6 [facility] OUTPATIEN [facility] 98818 [facility] 6 [facility] 45 MEDICAL MINUTES [facility] ANT - 6 6 [facility] OUTPATIEN [facility] T OFFICE 60692 A Lissette MASTERSON OUTPATIEN 6 6 BEATRICE LUDWIG T VISIT [facility] 15 MINUTES [facility] ANT - 6 6 [facility] OUT[facility] T OFFICE 22278 Rossi ADAMS OUTPATIPREETHI 6 6 BEATRICE SALDIVAR T VISIT [facility] 15 MINUTES
--- OUTSIDE RECORDS SUMMARY | 2016-12-13 15:05 | External Medical Summary Rpt | CCD ---
Demographics Preferred Language Tongan Marital Status Unknown Baptist Affiliation Unknown Race Unknown Ethnic Group Unknown Author Author TROY Address Unknown Phone Immunization No patient found.
--- OUTSIDE RECORDS SUMMARY | 2016-12-13 15:05 | External Medical Summary Rpt | CCD ---
Demographics Preferred Language Cook Islander Marital Status Unknown Orthodoxy Affiliation Unknown Race Unknown Ethnic Group Unknown Author Author TROY Address Unknown Phone Immunization No patient found.
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
== END 2016-12-13 15:09 | disposition home or self-care (01) ==
LOC: ER 14:09
PROC: 0HQKXZZ Repair Right Lower Leg Skin, External Approach (ICD-10-PCS; principal; 2016-12-13)
DX: S81.811A Laceration without foreign body, right lower leg, initial encounter (principal); W45.8XXA Other foreign body or object entering through skin, initial encounter; W22.8XXA Striking against or struck by other objects, initial encounter; Y92.79 Other farm location as the place of occurrence of the external cause; Z23 Encounter for immunization; Z88.6 Allergy status to analgesic agent; K21.9 Gastro-esophageal reflux disease without esophagitis; F17.210 Nicotine dependence, cigarettes, uncomplicated